=== PATIENT | male | born 1955 | race Caucasian/White ===

== ENCOUNTER → 2016-10-29 | Outpatient (CLI) | payer OTHER ==
--- NOTE | 2016-10-29 14:52 | RADRPT ---
PROCEDURE: XR Pelvis and Hips. CLINICAL INDICATION: Pelvic pain. Bilateral hip pain. TECHNIQUE: Five views. Frontal pelvis. Frontal and lateral right hip. Frontal and lateral left hip. COMPARISON: No prior studies are available for comparison. FINDINGS: There is no fracture or dislocation. The soft tissues are normal. Both hips are grossly abnormal with marked deformity of the femoral heads and acetabulae. There is associated secondary degenerative change. There is no lytic or blastic lesion. There is no radiopaque foreign body. IMPRESSION: 1. Marked deformity of both hips with associated secondary degenerative change. 2. No fracture. RPTAT: QQ .Sigifredo Porter MD, MD Date Time Electronically viewed and signed by .Sigifredo Porter MD, MD on 10/29/2016 14:51 .R/
== END | disposition home or self-care (01) ==
LOC: HKI 13:24
PROVIDERS: ATTEND Orthopaedic Surgery
DX: M16.0 Bilateral primary osteoarthritis of hip (principal); Q65.1 Congenital dislocation of hip, bilateral
CPT/HCPCS: 73523; Z7500; G0463

== ENCOUNTER → 2016-12-24 | Outpatient (CLI) | payer OTHER | END | disposition home or self-care (01) | LOC: HKI 10:52 | PROVIDERS: ATTEND Orthopaedic Surgery | DX: M16.0 Bilateral primary osteoarthritis of hip (principal); Q65.1 Congenital dislocation of hip, bilateral; M25.552 Pain in left hip; M25.551 Pain in right hip | CPT/HCPCS: 87081; Z7500; G0463 ==

== ENCOUNTER 2017-01-06 05:33 | Inpatient (IN) | payer OTHER ==
[2017-01-06] VITALS (30 sets, daily range): BP systolic 89–122; BP diastolic 45–69; PULSE 61–96; RESP 12–24; Ht 171.4 cm; Wt 88.1 kg
[~2017-01-06] VITALS: Ht 171.4 cm; Wt 88.1 kg
[~2017-01-06 05:33] MED LIST: BUPIVACAINE LIPOSOME/PF 266 MG/20 ML VIAL INFIL ONE; CEFAZOLIN 2GM/50 ML (PMX) 50 ML X1 BEFORE INCISION IVPB ONE; CELECOXIB 400 MG PO X1 DOSE PO ONE; PAIN COCKTAIL-CEFUROXIME IRR ONE; PREGABALIN 300 MG PO X1 PO ONE; TRANEXAMIC ACID in SOD CHLORIDE 0.9% 100 ML FOR INTRAOP IVPB ONE; TRANEXAMIC ACID in SOD CHLORIDE 0.9% 100 ML ON CALL TO OR IV ONE; oxyCODONE (CR) 10 MG TAB [oxyCONTIN] X1 DOSE PO ONE; traMADOL 50 MG TAB X 1 DOSE PO ONE
[2017-01-06] MEDS: LACTATED RINGER'S 1,000 ML IV SCH ×4 (06:26→23:50)
[2017-01-06] MEDS ORDERED: ALEVE (06:41)
[2017-01-06] MEDS ORDERED: MIDAZOLAM 1 MG/ML 2 ML INJ ONE (06:53)
[2017-01-06] MEDS ORDERED: PROPOFOL 100 ML ONE (06:53)
[2017-01-06] MEDS ORDERED: CEFAZOLIN 1 GM INJ ONE ×2 (06:53→10:58)
[2017-01-06] MEDS ORDERED: METOCLOPRAMIDE 10 MG INJ ONE (06:54)
[2017-01-06] MEDS ORDERED: DEXAMETHASONE 4 MG/ML 1 ML INJ ONE (06:54)
[2017-01-06] MEDS ORDERED: FENTAnyl 50 MCG/ML VIAL ONE (07:05)
--- NOTE | 2017-01-06 07:17 | HPN ---
Date/Time of Note Date/Time of Note DATE: 01/06/17 TIME: 07:16 Interval H&P Admission Note Pt. seen H&P reviewed: No system changes No change from H&P on 12/27/16 by MINA Fleming ERIK N. MD Jan 06, 2017 07:17
[2017-01-06] MEDS ORDERED: SODIUM CL BACTERIOSTATIC 30 ML INJ ONE (07:22)
[2017-01-06] MEDS ORDERED: POLYMYXIN B 500000 UNIT INJ ONE (07:23)
[2017-01-06] MEDS ORDERED: HEPARIN 1000 UNITS/ML 10 ML INJ ONE (07:23)
[2017-01-06] MEDS ORDERED: VANCOMYCIN 1 GM INJ ONE ×2 (07:23→10:05)
[2017-01-06] MEDS ORDERED: SUCCINYLCHOLINE CHLORIDE 100 MG/5 ML SYG IV ONE (07:40)
[2017-01-06] MEDS ORDERED: ROCURONIUM 50 MG INJ ONE ×2 (08:17)
[2017-01-06] MEDS ORDERED: BACITRACIN 50000 UNITS INJ IRR ONE (08:40)
[2017-01-06] MEDS ORDERED: TOBRAMYCIN 1.2 GM POWDER ONE (10:05)
[2017-01-06] MEDS ORDERED: EXPAREL NOTE (BUPIVICAINE LIPOSOMAL) XX SCH (10:30)
[2017-01-06] MEDS ORDERED: ONDANSETRON 4 MG INJ ONE (11:01)
[2017-01-06] MEDS ORDERED: EPHEDrine SULFATE 50 MG/5 ML SYG ONE (11:22)
[2017-01-06] MEDS ORDERED: HYDROmorphONE (0.2 MG/ML) 10ML SYG IV PRN ×3 (11:30)
[2017-01-06] MEDS ORDERED: ONDANSETRON 4 MG INJ IV PRN ×2 (11:30→12:00)
[2017-01-06] MEDS ORDERED: DIPHENHYDRAMINE 50 MG INJ IV PRN (11:30)
[2017-01-06] MEDS ORDERED: MEPERIDINE 25 MG INJ IV PRN (11:30)
[2017-01-06] MEDS ORDERED: METOCLOPRAMIDE 10 MG INJ IV PRN (11:30)
[2017-01-06] MEDS ORDERED: oxyCODONE 5 MG TAB PO PRN (12:00)
[2017-01-06] MEDS ORDERED: NA PHOSPHATE/BIPHOS 133 ML ENEMA PR PRN (12:00)
[2017-01-06] MEDS ORDERED: BISACODYL 10 MG SUPP PR PRN (12:00)
[2017-01-06] MEDS ORDERED: DIPHENHYDRAMINE 25 MG CAP PO PRN (12:00)
[2017-01-06] MEDS ORDERED: ASPIRIN (EC) 325 MG TAB PO ONE (12:00)
--- NOTE | 2017-01-06 12:21 | PN ---
Date/Time of Note Date/Time of Note DATE: 01/06/17 TIME: 12:18 Assessment/Plan Lines/Catheters IV Catheter Type (from Nrsg): Peripheral IV Assessment/Plan Assessment/Plan Stable in PACU, s/p left posterior RACHANA -continue ancef until drains removed -pain meds as needed -ASA/SCDs for DVT prophylaxis -OOB with PT - WB status is TDWB -posterior hip precautions -check AM labs -monitor drain -d/c mendes in AM XR of the left hip is pending at this time Subjective 24 Hr Interval Summary Stable in PACU. Moving all extremities. Denies pain. Exam/Review of Systems Vital Signs Vitals Vital Signs Date Time Temp Pulse Resp B/P Pulse Ox O2 Delivery O2 Flow Rate FiO2 01/06/17 12:11 98.6 01/06/17 06:14 61 18 116/58 99 Room Air Intake and Output 01/05/17 01/05/17 01/06/17 15:00 23:00 07:00 Intake Total 0 ml Balance 0 ml Exam Free Text/Dictation Hemovac: minimal Dressing dry Incision clean, dry, and intact without redness or drainage 5/5 Quadriceps, Tibialis Anterior, EHL, Gastroc, Soleus, Peroneals Normal sensation Palpable DT/PT, CR <2 sec No distal edema AMINA CRONIN PA-C Jan 06, 2017 12:21
--- NOTE | 2017-01-06 12:28 | OPR ---
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
[2017-01-06 12:35] LABS: HEMATOCRIT 33.1 % (42.0-52.0); HEMOGLOBIN 11.3 g/dl (14.0-18.0)
[2017-01-06 12:48] LABS: CALCIUM 8.1 mg/dl (8.4-10.2); CREATININE 0.82 mg/dl (0.61-1.24)
[2017-01-06] MEDS: ACETAMINOPHEN 1000MG/100ML IV 100 ML IVPB SCH ×3 (12:57→23:48)
[2017-01-06] MEDS: traMADol 50 MG TAB PO SCH ×3 (12:57→23:50)
[2017-01-06] MEDS: CEFAZOLIN 2 GM/50 ML (PMX) 50 ML IVPB SCH ×2 (12:58→21:09)
--- NOTE | 2017-01-06 13:34 | RADRPT ---
PROCEDURE: Pelvis x-ray CLINICAL INDICATION: Postop. TECHNIQUE: Single AP view of the pelvis performed. COMPARISON: AP pelvis 10/29/2016. FINDINGS: There is flattening and deformity of the right femoral head with narrowing of the right hip joint sp ekaterina. There is sclerotic changes and degenerative spurring off the margin of the right acetabulum. There has been a left hip arthroplasty with the components anatomically aligned. There is subcutane ous emphysema of the drainage catheter in the superior left hip. There are antibiotic pledgets vidal cent to the neck and proximal portion of the left hip arthroplasty. There is a Matos catheter in th e urinary bladder. There is skin conor over the lateral left hip. IMPRESSION: 1. Status post total left hip arthroplasty with anatomic alignment between the components. 2. Subcutaneous emphysema the drainage catheter in the right hip and antibiotic pledgets adjacent t o the femoral component of the left hip prosthesis. 3. Deformity of the proximal right femoral head with narrowing of the left hip joint consistent wit h secondary osteoarthritis. RPTAT:AAJJ Physician Mina Date Time Electronically viewed and signed by Physician Mina on 01/06/2017 13:33 HO/
--- NOTE | 2017-01-06 13:36 | OPR ---
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 OPERATION PERFORMED: Left total hip arthroplasty with subtrochanteric femoral shortening osteotomy. SURGEON: Arsen Weiss MD REGIONAL MANAGER: ROSENDO Castillo COMPONENTS USED: DePuy size 48 mm Gription Saint Johns cup, 48/32 neutral AltrX polyethylene liner, S-ROM femoral stem 18 x 13 with a 36+8 standard neck, 18 D large ZTT proximal sleeve, 32+9 cobalt chrome femoral head. ANESTHESIA: Spinal plus general endotracheal intubation plus periarticular injection. ANESTHESIOLOGIST: Dr. Arreaga ESTIMATED BLOOD LOSS: 800 mL. INTRAVENOUS FLUIDS: 2300 mL crystalloid plus 350 mL of autologous CellSaver blood. DRAINS: Hemovac x1. COMPLICATIONS: None. DISPOSITION: The patient tolerated the procedure well and was taken to the recovery room in stable condition. INDICATIONS: The patient is a 61-year-old gentleman who has had underlying developmental dysplasia of both hips with the development of severe osteoarthritis bilaterally. He has failed nonsurgical means of treatment to control his pain including activity modifications, pain medications, and ambulatory assist devices. Despite these measures, he has had worsening pain, and I felt he would benefit from a total hip arthroplasty in a staged fashion bilaterally with possible femoral subtrochanteric shortening osteotomies. He wanted to proceed with the left side first. The risks, benefits, and alternatives of the procedure were explained in detail to the patient. I explained the risks to include, but not be limited to, bleeding and possible need for blood transfusion, infection, pain, stiffness, neurovascular injury, possible numbness, weakness, and/or paralysis anywhere from the hip down to the toes, fracture, instability, dislocation, leg length inequality, wear and/or loosening of the prosthesis, need for revision at a later date, wound healing problems, blood clots, pulmonary embolism, and anesthetic complications such as heart attack, stroke, GI bleed, pneumonia and/or . Ample time was allowed for the patient to ask questions, all of which were addressed and answered. He understood the risks involved and wished to proceed. Informed consent was signed prior to the procedure. DESCRIPTION OF PROCEDURE: The left hip was initialed with a marking pen in the preoperative holding area to identify the correct operative site. The patient was then brought to the operating room and transferred [facility] the [facility] to the operating table where he was administered a spinal anesthetic and then anesthetized and intubated. A Matos catheter was placed. A time out was performed to confirm the left side was the correct operative site. He was given 2 grams of intravenous Ancef within 1 hour prior to the incision. He was then turned to lateral decubitus position with the left side up. An axillary roll was placed under the right chest wall. He was secured into the pegboard and all bony prominences were well padded. The left hip and lower extremity were prepped and draped in the usual sterile fashion. A standard posterolateral incision was made centered over the greater trochanter. This was carried down to subcutaneous tissue and fat with sharp dissection. The iliotibial band and gluteus hamida muscle fascia were incised along the length of the wound, and the gluteus hamida muscle fibers were bluntly split. The trochanteric bursa was incised. The piriformis and conjoined tendon were identified and taken down off the posterior aspect of the greater trochanter and tagged it with a #2 FiberWire. A complete release posteriorly was needed by releasing the quadratus femoris and gluteus hamida tendon to gain maximal mobility of the hip. The head was dislocated from the acetabulum. There was exuberant osteophyte around the head and particularly inferiorly. Osteotomes were used to remove the osteophytes to identify the lesser trochanter. Osteotomy was made with an oscillating saw a fingerbreadth above the level of the lesser trochanter. The femur was retracted anteriorly, but I was unable to adequately assess the acetabulum because of a markedly proximal migration of the femur. I felt he would need a shortening osteotomy. At this point, the femur was prepared prior to the osteotomy by reaming up to a 13.5 reamer, getting good chatter. I then reamed with a conical reamers going from an 18 B to an 18 D and then used the triangular aparicio to go to 18 B large. A trial sleeve sat flush with the neck cut. At this point, an osteotomy was made transversely 2 fingerbreadths below the level of lesser trochanter. The proximal fragment was then able to be mobilized anteriorly. Retractors were placed around the acetabulum. I then reamed to the medial wall with a 43 reamer and went up to an anatomic position, then went up by 2 mm increments until I got to a 47 reamer, getting a good bite on the anterior and posterior wall. A 48 mm Gription Saint Johns cup was opened and impacted into the acetabulum and sat flush circumferentially, getting a good bite. There was a small percentage that was uncovered superiorly, but the majority of the cup remained covered. This had an excellent bite. This had about 45 degrees of abduction and 20 degrees of anteversion. A trial 48/32 neutral Ultrex liner was placed into position. The Aufranc-Morelos guide showed the cup had 45 degrees of abduction and 20 degrees of anteversion. Attention was turned towards the femur. I then placed a trial 18 x 13 with a 36+8 standard neck into the proximal fragment with a 36+6 head and reduced this into the acetabulum. I then pulled on the distal fragment the femur and there was about 3.5 cm of overlap. I felt this would be the amount that needed to be shortened. An osteotomy was made and the proximal fragments were removed, 3.5 cm of bone. At this point, I reamed the distal femur with a 13 and then a 13.5 reamer getting good chatter. At this point, the trial stem was reduced into the distal fragment. C-arm imaging showed the alignment to be good, and the hip was taken through a range of motion and was quite stable. There was 110 degrees of flexion. At 90 degrees of flexion and neutral abduction, the hip was stable posteriorly to 80 degrees of internal rotation. The position of sleep was stable to 80 degrees of internal rotation as well. The hip came to a full extension with no posterior impingement or anterior instability. The Ranawat sign showed a combined forward flexion of 45 degrees. At this point, the trial was dislocated, the trial liner was removed from the acetabulum. An apex hole eliminator was placed and the real polyethylene insert was opened and impacted into the acetabulum and sat flush circumferentially. Attention was turned towards the femur. The trial ZTT sleeve was removed, and the real sleeve was opened, impacted into the femur, and sat flush with the neck cut. At this point, the femur was lined up for the proximal and distal segments as the linea asperas lined up. This was held in place while the tibia was pointing towards the ceiling. The 18 x 13 with a 36+8 neck was opened and impacted into the femur through the sleeve and across the osteotomy site and into the distal fragment, keeping the neck anteverted 20 to 25 degrees relative to the tibia pointing towards the ceiling. This sat flush with the ZTT sleeve and the osteotomy was compressed completely. There was a small crack in the distal fragment, but propagated only about 2 cm and I looked on C-arm, and it stopped well above where the end of the stem was and was rotationally stable. At this point, the trial heads were assembled, and I felt the 32+9 gave the best leg length and offset. The trunnion was irrigated and dried and the real 32+9 cobalt chrome head was impacted on the trunnion and reduced in the acetabulum. The hip was taken through a range of motion and had the same range of motion and stability as with the trials. At this point, the femoral shortening osteotomy fragment was cut in half and placed as a napkin ring around the osteotomy site and secured with Sonali cables tensioned to 100 kilograms of pressure and then tightened and then the excess cable cut. Final C -arm imaging showed the stem to be well aligned the osteotomy site to be compressed completely. AP and lateral images of the femur. Prior to reduction showed no distal fracture. The head was reduced in the acetabulum. The hip had the same range of motion and stability with the trials. The hip was irrigated with antibiotics and pulsatile lavage. Stimulant beads with vancomycin and tobramycin were mixed and placed in the deep portion of the wound. A Hemovac drain was placed in the deep portion of the wound and brought out the anterolateral thigh. The posterior capsule short external rotators were repaired back to the greater trochanter through drill holes and #2 FiberWire. Quadratus femoris and gluteus hamida tendon was repaired with a running #1 Vicryl. The sciatic nerve was inspected and noted to be intact with no undue tension. Soft tissues were infiltrated with a mixture of 0.5% ropivacaine, 4 mg Duramorph, 30 mg Toradol, 100 mcg of clonidine, 50 mL of normal saline, 750 mg of cefuroxime and 266 mg of liposomal bupivacaine. At this point, the iliotibial band was closed with interrupted #1 Ethibond in a ktdons-ni-rtaxj fashion. The gluteus hamida muscle fascia was repaired with running #1 Vicryl. The deep fat layer was irrigated and closed with a running 2 -0 Stratafix. The subcutaneous layer was closed with 3-0 Vicryl and conor on the skin. Skin edges were sealed with Dermabond. The drain was secured with 3- 0 nylon. Sponge and needle counts correct at the end of case. The wound was covered with silver Mepilex. The patient was taken out of the pegboard and transferred from the hospital where he was placed in a supine position and taken to the recovery room in stable condition. Dictated By: ARSEN TIDWELL/ARISTEO Conf#: [id number] DID#: [id number] MTDD
--- NOTE | 2017-01-06 13:46 | RADRPT ---
PROCEDURE: XR Left Hip. CLINICAL INDICATION: Post op in PACU TECHNIQUE: AP and frog lateral views of the left hip were performed. COMPARISON: Digital radiographs and surgery 01/06/2017. FINDINGS: The femoral and acetabular components of the left hip arthroplasty are anatomically aligned with the drainage catheter noted along the superior lateral margin of the left hip. Antibiotic pledgets and subcutaneous emphysema surrounding the femoral component of the left hip prosthesis. There is a Fo walt catheter in the urinary bladder. IMPRESSION: 1. Status post total left hip arthroplasty with postsurgical change. RPTAT:AAJJ Physician Mina Date Time Electronically viewed and signed by Physician Mina on 01/06/2017 13:45 HO/
--- NOTE | 2017-01-06 13:49 | RADRPT ---
PROCEDURE: Intraoperative imaging of the left hip with fluoroscopy. CLINICAL INDICATION: Left hip pain. Intraoperative. TECHNIQUE: 6 images of the left hip were obtained in the operating room with an image intensifier. No radiologist was in attendance. 36 seconds of fluoroscopy time was used. COMPARISON: No prior study is available for comparison. FINDINGS: Images demonstrate placement of a total left hip arthroplasty. IMPRESSION: 1. Satisfactory intraoperative imaging of the left hip. RPTAT: QQ .Sigifredo Porter MD, MD Date Time Electronically viewed and signed by .Sigifredo Porter MD, MD on 01/06/2017 13:49 .R/
[2017-01-06] MEDS ORDERED: BACITRACIN 50000 UNITS INJ ONE (14:45)
[2017-01-06] MEDS ORDERED: TRANEXAMIC ACID 880 MG in SOD CHLORIDE 0.9% 100 ML IVPB ONE ×2 (15:00→18:00)
[2017-01-06] MEDS: oxyCODONE 5 MG TAB PO PRN (15:29)
[2017-01-06] MEDS: PANTOPRAZOLE (EC) 40 MG TAB PO SCH (17:48)
--- NOTE | 2017-01-06 18:23 | CONS ---
DATE OF ADMISSION: 01/06/2017 DATE OF CONSULTATION: 01/06/2017 REASON FOR CONSULTATION: Medical management. REQUESTING CONSULT: Tim Weiss MD HISTORY OF PRESENT ILLNESS: This is a 61-year-old gentleman with past medical history of osteoarthr itis of the left hip, who has been seen and evaluated by his primary care physician and was diagnose d with left hip osteoarthritis secondary to developmental dysplasia of the left hip and has develope d severe arthritis bilaterally. The patient has failed nonsurgical means of treatment to control hi s pain including activity modification, pain medication, ambulatory assist devices. Despite of thes e measures, he has had worsening of the pain and he was seen and evaluated by orthopedic surgeon and it was felt that he would benefit from total hip arthroplasty in a staged fashion bilaterally with possible femoral subtrochanteric shortening osteotomies. He wanted to proceed with the left side fi rst. After discussing the risk and benefits of surgery and signing the consent, the patient was ligia en to OR today on 01/06/2017 for left total hip arthroplasty with subtrochanteric femoral shortening osteotomy. The patient tolerated the procedure well and was taken to the recovery room in stable c ondition. Estimated blood loss 800 mL. During the course of the surgery, the patient received vanc omycin and cefazolin. At this time, the patient has been admitted to medical/surgical. He denies a ny chest pain, shortness of breath, nausea, vomiting, diarrhea. No headache, dizziness, lightheaded ness. No change in visual acuity, diplopia, photophobia. No abdominal pain. No palpitations. Mod erate pain in his left hip. Otherwise, the 12-review of systems is negative. PAST MEDICAL AND SURGICAL HISTORY: None. MEDICATIONS: Aleve. SOCIAL HISTORY: Negative x3 for smoking, alcohol, illicit drugs. FAMILY HISTORY: Noncontributory. REVIEW OF SYSTEMS: As above per HPI, otherwise 12 review of systems was found to be negative. PHYSICAL EXAMINATION: VITAL SIGNS: Temperature 97.0, pulse 83, respirations 18, blood pressure 93/55, oxygen satura tion 98%. GENERAL APPEARANCE: The patient is lying in bed comfortably without any acute distress. He is awak e, alert, oriented. He is able to answer my questions properly. EYES AND ENT: Conjunctivae and lids are normal. Pupils are normal. Extraocular normal. Hearing g rossly normal. Lips, teeth and gums normal. Oral mucosa is moist. NECK: Supple. Trachea is midline. No lymphadenopathy. RESPIRATORY: Effort is normal. Clear to auscultation bilaterally. CARDIOVASCULAR: Normal S1, S2. Regular rhythm and rate. No murmur, no bruits, no edema. Peripher al pulses, radial pulses palpable. Capillary refill is normal. CHEST: Normal expansion of thorax during inspiration. GASTROINTESTINAL: Abdomen is soft, nontender, not distended. Bowel sounds present. No guarding, n o rebound. GENITOURINARY: Deferred. MUSCULOSKELETAL: Upper and lower extremities within normal limits. The patient's surgical site is dry and clean. There is a drain placed in the left hip area. NEUROLOGIC: Intact. LABORATORY DATA: Hemoglobin 11.3, hematocrit 32.1. Sodium 135, potassium 4.0, chloride 106, bicarb shiela 22, BUN 20, creatinine 0.82, calcium 8.1. ASSESSMENT AND PLAN: 1. 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 The patient is st atus post left total hip arthroplasty with subtrochanteric femoral shortening osteotomy. Continue p ostsurgical care and pain medication. PT, OT evaluate and treat. Continue pain management. 2. Deep venous thrombosis prophylaxis, on aspirin. 3. Gastrointestinal prophylaxis, on Protonix. We will continue to monitor the patient closely. Fu rther recommendations, management, and treatment as per clinical course. Dictated By: KIESHA NIXON/NTS Conf#: [id number] DID#: [id number]
[2017-01-06] MEDS: DOCUSATE SODIUM 100 MG CAP PO SCH (21:13)
[2017-01-06] MEDS: PREGABALIN 50 MG CAP PO SCH (21:13)
[2017-01-07] VITALS: BP 102/60; PULSE 64; RESP 17
[2017-01-07] MEDS: LACTATED RINGER'S 1,000 ML IV SCH ×5 (01:00→21:00)
[2017-01-07] MEDS: CEFAZOLIN 2 GM/50 ML (PMX) 50 ML IVPB SCH ×3 (04:21→20:17)
[2017-01-07] MEDS: HYDROmorphONE 1 MG/ML SYG IV PRN (05:01)
[2017-01-07 05:45] LABS: HEMATOCRIT 27.3 % (42.0-52.0); HEMOGLOBIN 8.9 g/dl (14.0-18.0)
[2017-01-07] MEDS: PANTOPRAZOLE (EC) 40 MG TAB PO SCH ×2 (06:35→17:39)
[2017-01-07] MEDS: ACETAMINOPHEN 1000MG/100ML IV 100 ML IVPB SCH (06:36)
[2017-01-07] MEDS: traMADol 50 MG TAB PO SCH ×3 (06:36→17:38)
[2017-01-07 06:48] LABS: CALCIUM 8.5 mg/dl (8.4-10.2); CREATININE 0.79 mg/dl (0.61-1.24); POTASSIUM 4.9 mmol/L (3.5-5.1)
--- NOTE | 2017-01-07 07:45 | PDOCDIS ---
Discharge Instructions DIAGNOSIS Discharge Diagnosis: s/p left posterior RACHANA, subtroch femoral osteotomy CONDITION Patient Condition: Good HOME CARE INSTRUCTIONS: Diet Instructions: Regular ACTIVITY: Activity Restrictions: Slowly Increase Activity Rest between Activity Avoid heavy lifting Do not operate Machinery Do not operate Power Tool Avoid Heavy Housework Keep Limb Elevated Bathing Restrictions: Shower FOLLOW UP/APPOINTMENTS Appointments follow up in the office on 01/17/17 OTHER ORDERS: Other Orders: S/P Posterior RACHANA Physical Therapy: Three times per week at home x 2 weeks Daily in Rehab/SNF WB STATUS: Touch down weight bearing Strengthening exercises for both upper and un-operated lower extremities. 1. Gait training with front wheeled walker 2. Wide base gait, no pivot turns. 3. Abductor strengthening. 4. Quadriceps and hamstring strengthening. 5. May switch to cane in contra lateral hand 6 weeks after surgery. 6. Physical Therapy can open case if nursing is not available. 7. Ice Packs while at rest to surgical wound for 20 minutes, 3 times/day. 8. Patient requires mobile SCDs to reduce risk of developing DVT following RACHANA. Patient will use the mobile SCDs for 30 days postoperatively. Hip Precautions: no flexion beyond 90 degrees, no adduction, no internal rotation. Bathing assistance by home health aide twice weekly if Medicare patient. Occupational Therapy: Evaluation for assistive devices and ADL training. Wound Care: Keep incision dry & covered with Tegaderm until first visit with Dr. Weiss Anticoagulation Orders: Enteric Coated Aspirin 325 mg po bid x 6 weeks from date of surgery Follow-up:Call for an appointment with Dr. Weiss in 1 week after discharged from hospital at DME Orders: STAN, 3-in-1 Commode, Mobile SCDs AMINA CRONIN PA-C Jan 07, 2017 07:45
[2017-01-07] MEDS ORDERED: PANT40TA4 PO (07:47)
[2017-01-07 08:42] VITALS: BP 117/57; RESP 18
[2017-01-07] MEDS: DOCUSATE SODIUM 100 MG CAP PO SCH ×2 (08:51→20:16)
[2017-01-07] MEDS: oxyCODONE 5 MG TAB PO PRN ×3 (08:51→21:03)
[2017-01-07] MEDS: PREGABALIN 50 MG CAP PO SCH ×2 (08:51→20:16)
[2017-01-07] MEDS: ASPIRIN (EC) 325 MG TAB PO SCH ×2 (08:51→20:16)
--- NOTE | 2017-01-07 09:01 | PN ---
Date/Time of Note Date/Time of Note DATE: 01/07/17 TIME: 08:59 Assessment/Plan Lines/Catheters IV Catheter Type (from Nrsg): Peripheral IV Matos in Place (from Nrsg): Yes Assessment/Plan Assessment/Plan Stable POD #1, s/p left posterior RACHANA, subtroch femoral shortening osteotomy -continue ancef until drains removed -monitor drains -pain meds as needed -ASA/SCDs for DVT prophylaxis -OOB with PT touch down weight bearing -posterior hip precautions -check AM labs -d/c planning. Will likely go home on Tuesday Subjective 24 Hr Interval Summary No acute overnight events. Denies any significant pain. H&H low but will continue to monitor for now. VSS, afebrile. Will plan to go home upon discharge. Exam/Review of Systems Vital Signs Vitals Vital Signs Date Time Temp Pulse Resp B/P Pulse Ox O2 Delivery O2 Flow Rate FiO2 01/07/17 08:42 98.2 66 18 117/57 100 01/07/17 00:00 Nasal Cannula 01/06/17 20:15 2.0 Intake and Output 01/06/17 01/06/17 01/07/17 14:59 22:59 06:59 Intake Total 2800 ml 1092.6 ml 2250 ml Output Total 1610 ml 550 ml 2000 ml Balance 1190 ml 542.6 ml 250 ml Exam Free Text/Dictation Hemovac: 260cc Dressing dry Incision clean, dry, and intact without redness or drainage 5/5 Quadriceps, Tibialis Anterior, EHL, Gastroc, Soleus, Peroneals Normal sensation Palpable DT/PT, CR <2 sec No distal edema Results Result Diagram: 01/07/17 0420 01/07/17 0440 AMINA CRONIN PA-C Jan 07, 2017 09:01
[2017-01-07 10:08] LABS: ADD UMIC YES; URINE BILIRUBIN (Dip) NEGATIVE (NEGATIVE); URINE BLOOD (Dip) 1+ (NEGATIVE); URINE COLOR LT. YELLOW (YELLOW); URINE GLUCOSE (Dip) NEGATIVE (NEGATIVE); URINE KETONES (Dip) NEGATIVE (NEGATIVE); URINE LEUKOCYTE ESTERASE (Dip) NEGATIVE (NEGATIVE); URINE NITRITE (Dip) NEGATIVE (NEGATIVE); URINE TOTAL PROTEIN (Dip) NEGATIVE (NEGATIVE); URINE UROBILINOGEN (Dip) 0.2 E.U./dL (0.1-1.0)
[2017-01-07 10:25] LABS: BACTERIA,URINE FEW
--- NOTE | 2017-01-07 17:01 | CONS ---
Date/Time of Note Date/Time of Note DATE: 01/07/17 TIME: 16:58 Assessment/Plan Assessment/Plan Chief Complaint/Hosp Course ASSESSMENT AND PLAN: 1. 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 The patient is status post left total hip arthroplasty with subtrochanteric femoral shortening osteotomy. Continue postsurgical care and pain medication. PT, OT evaluate and treat. Continue pain management. 2. Anemia, likely post surgical, follow-up iron panel, recommend to transfuse if hemoglobin decreases below 7.5 3. Deep venous thrombosis prophylaxis, on aspirin. 4. Gastrointestinal prophylaxis, on Protonix. We will continue to monitor the patient closely. Further recommendations, management, and treatment as per clinical course. Problems: Consultation Date/Type/Reason Admit Date/Time Jan 06, 2017 at 05:33 Initial Consult Date 01/06/17 Referring Provider: ARSEN AGUERO MD 24 HR Interval Summary Free Text/Dictation Denies any chest pain or shortness of breath Continues to complain of having left hip pain Pain has been more tolerable with ice and pain medication Exam/Review of Systems Vital Signs Vitals Vital Signs Date Time Temp Pulse Resp B/P Pulse Ox O2 Delivery O2 Flow Rate FiO2 01/07/17 08:42 98.2 66 18 117/57 100 01/07/17 00:00 Nasal Cannula 01/06/17 20:15 2.0 Intake and Output 01/06/17 01/06/17 01/07/17 15:00 23:00 07:00 Intake Total 2800 ml 1092.6 ml 2250 ml Output Total 1610 ml 550 ml 2000 ml Balance 1190 ml 542.6 ml 250 ml Exam General: The patient is well-developed, Not in acute distress. HEENT: Atraumatic, normocephalic. The pupils are equal and round . Neck: Supple with full range of motion. Chest: Normal expansion of the thorax during inspiration Lungs: Clear to auscultation bilaterally Heart: Normal S1-S2, Regular rhythm and rate. Abdomen: Soft , nontender, nondistended , bowel sounds are present. Extremities: Surgical site is dry and clean, drain is in place, no edema no cyanosis Neurologic: Normal mental status,The patient is awake, alert and oriented . Results Result Diagram: 01/07/17 0420 01/07/17 0440 Results 24 hrs Laboratory Tests Test 01/07/17 04:20 01/07/17 04:40 01/07/17 06:40 Hemoglobin 8.9 #L Hematocrit 27.3 L Sodium Level 134 L Potassium Level 4.9 Chloride Level 103 Carbon Dioxide Level 27 Anion Gap 9 Blood Urea Nitrogen 15 Creatinine 0.79 Glucose Level 134 # Calcium Level 8.5 Urine Color LT. YELLOW Urine Clarity CLEAR Urine pH 6.0 Urine Specific [place] 1.020 Urine Ketones NEGATIVE Urine Nitrite NEGATIVE Urine Bilirubin NEGATIVE Urine Urobilinogen 0.2 E.U./dL Urine Leukocyte Esterase NEGATIVE Urine Microscopic RBC 10-25 Urine Microscopic WBC 2-5 Urine Epithelial Cells FEW Urine Bacteria FEW Urine Hemoglobin 1+ H Urine Glucose NEGATIVE Urine Total Protein NEGATIVE Medications Medications Current Medications Lactated Ringer's (Lr) 1,000 ml @ 100 mls/hr Q10H IV Last administered on 11:03; Admin Dose 100 MLS/HR; Start 01/06/17 at 05:00 Miscellaneous Information 1 ea NOTE XX ; Start 01/06/17 at 10:30; Stop 01/10/17 at 10:29 Tramadol HCl (Ultram) 50 mg Q6 PO Last administered on 01/07/17 11:54; Admin Dose 50 MG; Start 01/06/17 at 12:00; Stop 01/09/17 at 11:59 Oxycodone HCl (Roxicodone) 5 mg Q4H PRN PO PAIN LEVEL 1-3; Start 01/06/17 at 12: 00 Oxycodone HCl (Roxicodone) 10 mg Q4H PRN PO PAIN LEVEL 4-7 Last administered on 01/07/17 14:49; Admin Dose 10 MG; Start 01/06/17 at 12:00 Hydromorphone HCl 1 mg 1 mg Q3H PRN IV PAIN LEVEL 8-10 Last administered on 01/07 05:01; Admin Dose 1 MG; Start 01/06/17 at 12:00 Cefazolin Sodium/ Dextrose (Ancef 2 Gm/50 ml (Pmx)) 50 ml @ 100 mls/hr Q8H IVPB Last administered on 01/07/17 11:55; Admin Dose 100 MLS/HR; Start 01/06/17 at 12:00; Stop 01/08/17 at 04:29 Ondansetron HCl (Zofran Inj) 4 mg Q6H PRN IV NAUSEA AND/OR VOMITING; Start 01/06 at 12:00 Bisacodyl (Dulcolax Supp) [address] CONSTIPATION; Start 01/06/17 at 12: 00 Magnesium Hydroxide (Milk Of Mag) 30 ml BID PRN PO CONSTIPATION; Start 01/06/17 at 12:00 Sodium Biphosphate/ Sodium Phosphate (Fleet Enema) [address] CONSTIPATION; Start 01/06/17 at 12:00 Docusate Sodium (Colace) 100 mg BID PO Last administered on 01/07/17 08:51; Admin Dose 100 MG; Start 01/06/17 at 21:00 Diphenhydramine HCl (Benadryl) 25 mg Q6H PRN PO PRURITUS; Start 01/06/17 at 12: 00 Aspirin (Ecotrin) 325 mg BID PO Last administered on 01/07/17 08:51; Admin Dose 325 MG; Start 01/07/17 at 09:00 Pantoprazole (Protonix Tab) 40 mg BID@06,18 PO Last administered on 01/07/17 06 :35; Admin Dose 40 MG; Start 01/06/17 at 18:00 Pregabalin (Lyrica) 50 mg BID PO Last administered on 01/07/17 08:51; Admin Dose 50 MG; Start 01/06/17 at 21:00 KIESHA ISRAEL MD Jan 07, 2017 17:01
[2017-01-07 19:00] VITALS: BP 113/55; RESP 19
[2017-01-08] MEDS: oxyCODONE 5 MG TAB PO PRN (04:16)
[2017-01-08] MEDS: CEFAZOLIN 2 GM/50 ML (PMX) 50 ML IVPB SCH (04:36)
[2017-01-08] MEDS: HYDROmorphONE 1 MG/ML SYG IV PRN ×3 (04:53→22:16)
[2017-01-08 05:27] LABS: HEMATOCRIT 27.3 % (42.0-52.0)
[2017-01-08 05:44] LABS: CALCIUM 8.6 mg/dl (8.4-10.2); CREATININE 0.76 mg/dl (0.61-1.24); POTASSIUM 4.6 mmol/L (3.5-5.1)
[2017-01-08] MEDS: LACTATED RINGER'S 1,000 ML IV SCH ×2 (06:04→17:00)
[2017-01-08] MEDS: traMADol 50 MG TAB PO SCH ×5 (06:08→18:43)
[2017-01-08] MEDS: PANTOPRAZOLE (EC) 40 MG TAB PO SCH ×3 (06:08→18:43)
[2017-01-08 07:45] VITALS: BP 107/66; RESP 16
--- NOTE | 2017-01-08 08:24 | PN ---
Date/Time of Note Date/Time of Note DATE: 01/08/17 TIME: 08:18 Assessment/Plan VTE Prophylaxis VTE Prophylaxis Intervention: ambulation (Touchdown weightbearing as tolerated. With use of front wheeled walker.), SCD's Lines/Catheters IV Catheter Type (from Nrsg): Peripheral IV Matos in Place (from Nrsg): No Assessment/Plan Assessment/Plan -Hemovac Removed Today. 360 cc output. -Pain Meds as needed. Oxycodone 10 mg was stopped and patient was placed on [place] 7.5/[address] Weiss request. Nurse was notified. -Dress change performed today -Continue touchdown weightbearing as tolerated with use of assisted ambulatory device (front wheeled walker). -ASA/SCDs for DVT Prophylaxis -Continue monitoring with Internal Medicine -Patient Stable. -Unlikely patient will be discharged home tomorrow as he feels that he is not ready and continues experiencing pain. Subjective 24 Hr Interval Summary 61-year-old male postop day 1 left total hip arthroplasty via posterior route. Overnight, patient states that his pain was overall controlled up until 4 AM when he experienced 9/10 pain. Patient was provided with pain medication in regards to oxycodone 10 mg for pain exacerbation. Patient states that oxycodone did help relieve pain but continued to experience pain about 2 hours after. Denies any calf pain, chest pain/tightness or shortness of breath. Denies any complications to the wound. Denies any draining to the wound site. Hemovac remains intact. Pain Control: moderate Exam/Review of Systems Vital Signs Vitals Vital Signs Date Time Temp Pulse Resp B/P Pulse Ox O2 Delivery O2 Flow Rate FiO2 01/08/17 07:45 98.6 69 16 107/66 98 01/07/17 00:00 Nasal Cannula 01/06/17 20:15 2.0 Intake and Output 01/07/17 01/07/17 01/08/17 15:00 23:00 07:00 Intake Total 1150 ml 2810 ml 1250 ml Output Total 1860 ml 1160 ml Balance 1150 ml 950 ml 90 ml Exam Free Text/Dictation -Hemovac: Intact. 360 cc output. -Pain Cocktail Drains: Intact -Incision: Clean, Dry and Intact without any redness or drainage -Thigh soft -4+/5 Quadriceps, Tibialis Anterior, EHL Gastrocnemius/Soleus and Peroneals -Normal Sensation -Palpable DP/PT, Capillary Refill <2 secs -No Distal Edema -Negative Rocio Sign/No calf pain -Toes Freely Movable Constitutional: alert, oriented, well developed Results Result Diagram: 01/08/17 0437 01/08/17 0437 ESTEPHANIE WEBSTER PA-C Jan 08, 2017 08:24
[2017-01-08] MEDS: ASPIRIN (EC) 325 MG TAB PO SCH ×2 (08:46→20:19)
[2017-01-08] MEDS: HYDROCODONE/APAP (7.5/325) TAB PO PRN ×3 (08:47→18:56)
[2017-01-08] MEDS: DOCUSATE SODIUM 100 MG CAP PO SCH ×2 (08:47→20:20)
[2017-01-08] MEDS: PREGABALIN 50 MG CAP PO SCH ×2 (08:49→20:19)
--- NOTE | 2017-01-08 13:24 | PN ---
Date/Time of Note Date/Time of Note DATE: 01/08/17 TIME: 13:22 Assessment/Plan VTE Prophylaxis VTE Prophylaxis Intervention: SCD's, other Lines/Catheters [facility] Saline Lock Urinary Cath still in place: No Assessment/Plan Chief Complaint/Hosp Course ASSESSMENT AND PLAN: 1. 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 The patient is status post left total hip arthroplasty with subtrochanteric femoral shortening osteotomy. Continue postsurgical care and pain medication. PT, OT evaluate and treat. Continue pain management. 2. Anemia, likely post surgical, follow-up iron panel, recommend to transfuse if hemoglobin decreases below 7.5 3. Deep venous thrombosis prophylaxis, on aspirin. 4. Gastrointestinal prophylaxis, on Protonix. We will continue to monitor the patient closely. Further recommendations, management, and treatment as per clinical course. Problems: Subjective 24 Hr Interval Summary Free Text/Dictation Patient continues to complain of having left hip pain Denies of any chest pain or shortness of breath No nausea vomiting diarrhea Exam/Review of Systems Vital Signs Vitals Vital Signs Date Time Temp Pulse Resp B/P Pulse Ox O2 Delivery O2 Flow Rate FiO2 01/08/17 07:45 98.6 69 16 107/66 98 01/07/17 00:00 Nasal Cannula 01/06/17 20:15 2.0 Intake and Output 01/07/17 01/07/17 01/08/17 14:59 22:59 06:59 Intake Total 750 ml 3210 ml 1250 ml Output Total 1860 ml 1160 ml Balance 750 ml 1350 ml 90 ml Exam General: The patient is well-developed, Not in acute distress. HEENT: Atraumatic, normocephalic. The pupils are equal and round . Neck: Supple with full range of motion. Chest: Normal expansion of the thorax during inspiration Lungs: Clear to auscultation bilaterally Heart: Normal S1-S2, Regular rhythm and rate. Abdomen: Soft , nontender, nondistended , bowel sounds are present. Extremities: Surgical site is dry and clean, no edema no cyanosis Neurologic: Normal mental status,The patient is awake, alert and oriented . Results Result Diagram: 01/08/17 0437 01/08/17 0437 Results 24 hrs Laboratory Tests Test 01/08/17 04:37 Hemoglobin 9.0 L Hematocrit 27.3 L Sodium Level 133 L Potassium Level 4.6 Chloride Level 99 Carbon Dioxide Level 30 Anion Gap 9 Blood Urea Nitrogen 13 Creatinine 0.76 Glucose Level 113 Calcium Level 8.6 Medications Medications Current Medications Lactated Ringer's (Lr) 1,000 ml @ 100 mls/hr Q10H IV Last administered on 11:03; Admin Dose 100 MLS/HR; Start 01/06/17 at 05:00 Miscellaneous Information 1 ea NOTE XX ; Start 01/06/17 at 10:30; Stop 01/10/17 at 10:29 Tramadol HCl (Ultram) 50 mg Q6 PO Last administered on 01/08/17 11:42; Admin Dose 50 MG; Start 01/06/17 at 12:00; Stop 01/09/17 at 11:59 Hydromorphone HCl (Dilaudid) 1 mg Q3H PRN IV PAIN LEVEL 8-10 Last administered on 01/08/17 04:53; Admin Dose 1 MG; Start 01/06/17 at 12:00 Ondansetron HCl (Zofran Inj) 4 mg Q6H PRN IV NAUSEA AND/OR VOMITING; Start 01/06 at 12:00 Bisacodyl (Dulcolax Supp) 10 mg Q12H PRN [place] CONSTIPATION; Start 01/06/17 at 12: 00 Magnesium Hydroxide (Milk Of Mag) 30 ml BID PRN PO CONSTIPATION; Start 01/06/17 at 12:00 Sodium Biphosphate/ Sodium Phosphate (Fleet Enema) 133 ml DAILY PRN [place] CONSTIPATION; Start 01/06/17 at 12:00 Docusate Sodium (Colace) 100 mg BID PO Last administered on 01/08/17 08:47; Admin Dose 100 MG; Start 01/06/17 at 21:00 Diphenhydramine HCl (Benadryl) 25 mg Q6H PRN PO PRURITUS; Start 01/06/17 at 12: 00 Aspirin (Ecotrin) 325 mg BID PO Last administered on 01/08/17 08:46; Admin Dose 325 MG; Start 01/07/17 at 09:00 Pantoprazole (Protonix Tab) 40 mg BID@06,18 PO Last administered on 01/08/17 06 :08; Admin Dose 40 MG; Start 01/06/17 at 18:00 Pregabalin (Lyrica) 50 mg BID PO Last administered on 01/08/17 08:49; Admin Dose 50 MG; Start 01/06/17 at 21:00 Acetaminophen/ Hydrocodone Bitart ([place] (7.5-325)) 1 tab Q4H PRN PO PAIN LEVEL 1-5 Last administered on 01/08/17 08:47; Admin Dose 1 TAB; Start 01/08/17 at 08:30 Acetaminophen/ Hydrocodone Bitart ([place] (7.5-325)) 2 tab Q4H PRN PO MODERATE PAIN LEVEL 4-6; Start 01/08/17 at 09:00 KIESHA ISRAEL MD Jan 08, 2017 13:23
[2017-01-08] MEDS: MAGNESIUM HYDROXIDE 30ML CUP PO PRN (18:55)
[2017-01-08 21:09] VITALS: BP 125/71; RESP 20
[2017-01-09] MEDS: traMADol 50 MG TAB PO SCH ×3 (00:20→11:56)
[2017-01-09] MEDS: LACTATED RINGER'S 1,000 ML IV SCH ×3 (02:58→23:00)
[2017-01-09 05:28] LABS: HEMATOCRIT 25.7 % (42.0-52.0); HEMOGLOBIN 8.5 g/dl (14.0-18.0)
[2017-01-09 05:44] LABS: POTASSIUM 4.5 mmol/L (3.5-5.1)
[2017-01-09 05:46] LABS: CREATININE 0.73 mg/dl (0.61-1.24)
[2017-01-09 05:47] LABS: CALCIUM 8.8 mg/dl (8.4-10.2)
[2017-01-09] MEDS ORDERED: PANTOPRAZOLE (EC) 40 MG TAB PO SCH (06:00)
[2017-01-09 06:19] LABS: TOTAL IRON BINDING CAPACITY 260 ug/dl (241-421)
[2017-01-09 06:21] LABS: IRON < 10 ug/dl (35-150)
--- NOTE | 2017-01-09 07:57 | PN ---
Date/Time of Note Date/Time of Note DATE: 01/09/17 TIME: 07:45 Assessment/Plan VTE Prophylaxis VTE Prophylaxis Intervention: SCD's, other (Aspirin 325 mg twice daily) Lines/Catheters IV Catheter Type (from Nrsg): Saline Lock Matos in Place (from Nrsg): No Assessment/Plan Assessment/Plan -Pain Meds as needed -Dress change performed today -OOB with PT. touchdown weightbearing only. Patient has mentioned that he has been doing some range of motion while in the bed. It was discussed with patient and his not to perform any range of motion while in the bed as this can increase complications such as dislocation. He states understanding and compliance. Also advised physical therapy, no range of motion while in bed. -ASA/SCDs for DVT Prophylaxis -Continue monitoring with Internal Medicine -Patient Stable Subjective 24 Hr Interval Summary 61-year-old male postop day 2 status post left total hip arthroplasty via posterior route. Patient states that pain was better controlled compared to yesterday. Pain medication was switched to [place] 7.5/325 mg from oxycodone 10 mg. Continues with physical therapy in the bed. Patient confirms that he has only been doing touchdown weightbearing in his room. Continues with complaints of stiffness along the quadriceps muscle with discomfort. Denies any calf pain. No chest pain/tightness or shortness of breath. Patient does state that his symptoms have improved. Pain Control: mild Exam/Review of Systems Vital Signs Vitals Vital Signs Date Time Temp Pulse Resp B/P Pulse Ox O2 Delivery O2 Flow Rate FiO2 01/08/17 21:09 98.5 74 20 125/71 95 01/07/17 00:00 Nasal Cannula 01/06/17 20:15 2.0 Intake and Output 01/08/17 01/08/17 01/09/17 15:00 23:00 07:00 Intake Total 1100 ml 1500 ml Output Total 1300 ml 1400 ml Balance -200 ml 100 ml Exam Free Text/Dictation -Hemovac: Removed -Incision: Clean, Dry and Intact without any redness or drainage -Thigh soft -5/5 Quadriceps, Tibialis Anterior, EHL Gastrocnemius/Soleus and Peroneals -Normal Sensation -Palpable DP/PT, Capillary Refill <2 secs -No Distal Edema -Negative Rocio Sign/No calf pain -Toes Freely Movable Constitutional: alert, oriented, well developed Results Result Diagram: 01/09/17 0505 01/09/17 0505 ESTEPHANIE WEBSTER PA-C Jan 09, 2017 07:56
[2017-01-09] MEDS: HYDROCODONE/APAP (7.5/325) TAB PO PRN ×4 (08:07→20:46)
[2017-01-09 08:09] VITALS: BP 145/74; RESP 16
[2017-01-09] MEDS: PREGABALIN 50 MG CAP PO SCH ×2 (08:23→20:45)
[2017-01-09] MEDS: ASPIRIN (EC) 325 MG TAB PO SCH ×2 (08:23→20:45)
[2017-01-09] MEDS: DOCUSATE SODIUM 100 MG CAP PO SCH ×2 (08:23→20:45)
--- NOTE | 2017-01-09 12:41 | PN ---
Date/Time of Note Date/Time of Note DATE: 01/09/17 TIME: 12:40 Assessment/Plan VTE Prophylaxis VTE Prophylaxis Intervention: other Lines/Catheters IV Catheter Type (from [facility]): Saline Lock Urinary Cath still in place: No Assessment/Plan Chief Complaint/Hosp Course ASSESSMENT AND PLAN: 1. 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 The patient is status post left total hip arthroplasty with subtrochanteric femoral shortening osteotomy. Continue postsurgical care and pain medication. PT, OT evaluate and treat. Continue pain management. 2. Anemia, likely post surgical, stable, recommend to transfuse if hemoglobin decreases below 7.5, recommend to start on ferrous sulfate plus vitamin C 3. Deep venous thrombosis prophylaxis, on aspirin. 4. Gastrointestinal prophylaxis, on Protonix. We will continue to monitor the patient closely. Further recommendations, management, and treatment as per clinical course. 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 HEENT: Atraumatic, normocephalic. The pupils are equal and round . Neck: Supple with full range of motion. Chest: Normal expansion of the thorax during inspiration Lungs: Clear to auscultation bilaterally Heart: Normal S1-S2, Regular rhythm and rate. Abdomen: Soft , nontender, nondistended , bowel sounds are present. Extremities: Normal to inspection, no edema no cyanosis, surgical site is dry and clean Neurologic: Normal mental status,The patient is awake, alert and oriented . Results Result Diagram: 01/09/17 0505 01/09/17 0505 Results 24 hrs Laboratory Tests Test 01/09/17 05:05 Hemoglobin 8.5 L Hematocrit 25.7 L Sodium Level 135 Potassium Level 4.5 Chloride Level 94 L Carbon Dioxide Level 34 H Anion Gap 12 Blood Urea Nitrogen 14 Creatinine 0.73 Glucose Level 114 Calcium Level 8.8 Iron Level < 10 L Total Iron Binding Capacity 260 Percent Iron Saturation Ferritin 70.8 Medications Medications Current Medications Lactated Ringer's (Lr) 1,000 ml @ 100 mls/hr Q10H IV Last administered on 11:03; Admin Dose 100 MLS/HR; Start 01/06/17 at 05:00 Miscellaneous Information 1 ea NOTE XX ; Start 01/06/17 at 10:30; Stop 01/10/17 at 10:29 Hydromorphone HCl (Dilaudid) 1 mg Q3H PRN IV PAIN LEVEL 8-10 Last administered on 01/08/17 22:16; Admin Dose 1 MG; Start 01/06/17 at 12:00 Ondansetron HCl (Zofran Inj) 4 mg Q6H PRN IV NAUSEA AND/OR VOMITING; Start 01/06 at 12:00 Bisacodyl (Dulcolax Supp) 10 mg Q12H PRN [place] CONSTIPATION; Start 01/06/17 at 12: 00 Magnesium Hydroxide (Milk Of Mag) 30 ml BID PRN PO CONSTIPATION Last administered on 01/08/17 18:55; Admin Dose 30 ML; Start 01/06/17 at 12:00 Sodium Biphosphate/ Sodium Phosphate (Fleet Enema) 133 ml DAILY PRN [place] CONSTIPATION; Start 01/06/17 at 12:00 Docusate Sodium (Colace) 100 mg BID PO Last administered on 01/09/17 08:23; Admin Dose 100 MG; Start 01/06/17 at 21:00 Diphenhydramine HCl (Benadryl) 25 mg Q6H PRN PO PRURITUS; Start 01/06/17 at 12: 00 Aspirin (Ecotrin) 325 mg BID PO Last administered on 01/09/17 08:23; Admin Dose 325 MG; Start 01/07/17 at 09:00 Pantoprazole (Protonix Tab) 40 mg BID@06,18 PO Last administered on 01/08/17 18 :43; Admin Dose 40 MG; Start 01/06/17 at 18:00 Pregabalin (Lyrica) 50 mg BID PO Last administered on 01/09/17 08:23; Admin Dose 50 MG; Start 01/06/17 at 21:00 Acetaminophen/ Hydrocodone Bitart ([place] (7.5-325)) 1 tab Q4H PRN PO PAIN LEVEL 1-5 Last administered on 01/08/17 13:34; Admin Dose 1 TAB; Start 01/08/17 at 08:30 Acetaminophen/ Hydrocodone Bitart ([place] (7.5-325)) 2 tab Q4H PRN PO MODERATE PAIN LEVEL 4-6 Last administered on 01/09/17 11:56; Admin Dose 2 TAB; Start 01/08 at 09:00 KIESHA ISRAEL MD Jan 09, 2017 12:41
[2017-01-09] MEDS: PANTOPRAZOLE (EC) 40 MG TAB PO SCH (16:15)
[2017-01-09] MEDS: MAGNESIUM HYDROXIDE 30ML CUP PO PRN (19:05)
[2017-01-09 19:35] VITALS: BP 118/61; RESP 19
[2017-01-09] MEDS: NACL 0.9% 3 ML SYG IV SCH (20:50)
[2017-01-10] MEDS: HYDROCODONE/APAP (7.5/325) TAB PO PRN ×3 (01:09→09:21)
[2017-01-10] MEDS: HYDROmorphONE 1 MG/ML SYG IV PRN ×3 (02:14→11:25)
[2017-01-10 04:59] LABS: HEMATOCRIT 24.9 % (42.0-52.0); HEMOGLOBIN 8.2 g/dl (14.0-18.0)
[2017-01-10 05:14] LABS: POTASSIUM 4.2 mmol/L (3.5-5.1)
[2017-01-10 05:16] LABS: CREATININE 0.75 mg/dl (0.61-1.24)
[2017-01-10 05:17] LABS: CALCIUM 8.4 mg/dl (8.4-10.2)
[2017-01-10] MEDS: PANTOPRAZOLE (EC) 40 MG TAB PO SCH ×2 (05:19→18:00)
[2017-01-10 08:23] VITALS: BP 128/63; RESP 18
--- NOTE | 2017-01-10 08:28 | PN ---
Date/Time of Note Date/Time of Note DATE: 01/10/17 TIME: 08:24 Assessment/Plan Lines/Catheters IV Catheter Type (from Nrsg): Saline Lock Matos in Place (from Nrsg): No Assessment/Plan Assessment/Plan POD #4, s/p left posterior RACHANA, subtrochanteric shortening femoral osteotomy -pain meds as needed -ASA/SCDs for DVT prophylaxis -OOB with PT -posterior hip precautions -dressing changed -apply ice over anterior hip -possible discharge home this afternoon versus tomorrow depending on pain control Subjective 24 Hr Interval Summary No acute overnight events. Still having moderate pain and requesting IV pain medication. Progressing with PT. States swelling overall is improving. Encouraged him once again to stop overdoing it and follow our recommendations and PT protocol. Possible discharge home today versus tomorrow. Exam/Review of Systems Vital Signs Vitals Vital Signs Date Time Temp Pulse Resp B/P Pulse Ox O2 Delivery O2 Flow Rate FiO2 01/09/17 19:35 99.0 76 19 118/61 96 01/07/17 00:00 Nasal Cannula 01/06/17 20:15 2.0 Intake and Output 01/09/17 01/09/17 01/10/17 15:00 23:00 07:00 Intake Total 1400 ml Output Total 1000 ml Balance 1400 ml -1000 ml Exam Free Text/Dictation Dressing dry Incision clean, dry, and intact without redness or drainage 5/5 Quadriceps, Tibialis Anterior, EHL, Gastroc, Soleus, Peroneals Normal sensation Moderate soft tissue swelling Palpable DT/PT, CR <2 sec No distal edema Results Result Diagram: 01/10/17 0435 01/10/17 0435 AMINA CRONIN PA-C Jan 10, 2017 08:28
[2017-01-10] MEDS: LACTATED RINGER'S 1,000 ML IV SCH ×2 (09:00→19:00)
[2017-01-10] MEDS: PREGABALIN 50 MG CAP PO SCH ×2 (09:20→21:18)
[2017-01-10] MEDS: ASPIRIN (EC) 325 MG TAB PO SCH ×2 (09:20→21:18)
[2017-01-10] MEDS: DOCUSATE SODIUM 100 MG CAP PO SCH ×2 (09:20→21:18)
--- NOTE | 2017-01-10 10:15 | PN ---
Date/Time of Note Date/Time of Note DATE: 01/10/17 TIME: 10:12 Assessment/Plan VTE Prophylaxis VTE Prophylaxis Intervention: other Lines/Catheters [facility] Saline Lock Urinary Cath still in place: No Assessment/Plan Chief Complaint/Hosp Course ASSESSMENT AND PLAN: 1. 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 The patient is status post left total hip arthroplasty with subtrochanteric femoral shortening osteotomy. Continue postsurgical care and pain medication. PT, OT evaluate and treat. Continue pain management. 2. Anemia, likely post surgical, stable, recommend to transfuse if hemoglobin decreases below 7.5, recommend to start on ferrous sulfate plus vitamin C 3. Deep venous thrombosis prophylaxis, on aspirin. 4. Gastrointestinal prophylaxis, on Protonix. We will continue to monitor the patient closely. Further recommendations, management, and treatment as per clinical course. Disposition as per orthopedic surgeon Patient is medically stable for discharge with a close follow up with orthopedic surgeon as outpatient Problems: Subjective 24 Hr Interval Summary Free Text/Dictation Patient continues to complain of having left hip pain Ambulate with max assist No nausea vomiting diarrhea Exam/Review of Systems Vital Signs Vitals Vital Signs Date Time Temp Pulse Resp B/P Pulse Ox O2 Delivery O2 Flow Rate FiO2 01/10/17 08:23 97.9 64 18 128/63 99 01/07/17 00:00 Nasal Cannula 01/06/17 20:15 2.0 Intake and Output 01/09/17 01/09/17 01/10/17 15:00 23:00 07:00 Intake Total 1400 ml Output Total 1000 ml Balance 1400 ml -1000 ml Exam General: The patient is well-developed, Not in acute distress. HEENT: Atraumatic, normocephalic. The pupils are equal and round . Neck: Supple with full range of motion. Chest: Normal expansion of the thorax during inspiration Lungs: Clear to auscultation bilaterally Heart: Normal S1-S2, Regular rhythm and rate. Abdomen: Soft , nontender, nondistended , bowel sounds are present. Extremities: Surgical site is dry and clean, no edema no cyanosis Neurologic: Normal mental status,The patient is awake, alert and oriented . Results Result Diagram: 01/10/17 0435 01/10/17 0435 Results 24 hrs Laboratory Tests Test 01/10/17 04:35 Hemoglobin 8.2 L Hematocrit 24.9 L Sodium Level 133 L Potassium Level 4.2 Chloride Level 92 L Carbon Dioxide Level 32 H Anion Gap 13 Blood Urea Nitrogen 12 Creatinine 0.75 Glucose Level 129 Calcium Level 8.4 Medications Medications Current Medications Lactated Ringer's (Lr) 1,000 ml @ 100 mls/hr Q10H IV Last administered on 11:03; Admin Dose 100 MLS/HR; Start 01/06/17 at 05:00 Miscellaneous Information 1 ea NOTE XX ; Start 01/06/17 at 10:30; Stop 01/10/17 at 10:29 Hydromorphone HCl (Dilaudid) 1 mg Q3H PRN IV PAIN LEVEL 8-10 Last administered on 01/10/17 07:00; Admin Dose 1 MG; Start 01/06/17 at 12:00 Ondansetron HCl (Zofran Inj) 4 mg Q6H PRN IV NAUSEA AND/OR VOMITING; Start 01/06 at 12:00 Bisacodyl (Dulcolax Supp) 10 mg Q12H PRN [place] CONSTIPATION; Start 01/06/17 at 12: 00 Magnesium Hydroxide (Milk Of Mag) 30 ml BID PRN PO CONSTIPATION Last administered on 01/09/17 19:05; Admin Dose 30 ML; Start 01/06/17 at 12:00 Sodium Biphosphate/ Sodium Phosphate (Fleet Enema) 133 ml DAILY PRN [place] CONSTIPATION; Start 01/06/17 at 12:00 Docusate Sodium (Colace) 100 mg BID PO Last administered on 01/10/17 09:20; Admin Dose 100 MG; Start 01/06/17 at 21:00 Diphenhydramine HCl (Benadryl) 25 mg Q6H PRN PO PRURITUS; Start 01/06/17 at 12: 00 Aspirin (Ecotrin) 325 mg BID PO Last administered on 01/10/17 09:20; Admin Dose 325 MG; Start 01/07/17 at 09:00 Pantoprazole (Protonix Tab) 40 mg BID@06,18 PO Last administered on 01/10/17 05:19; Admin Dose 40 MG; Start 01/06/17 at 18:00 Pregabalin (Lyrica) 50 mg BID PO Last administered on 01/10/17 09:20; Admin Dose 50 MG; Start 01/06/17 at 21:00 Acetaminophen/ Hydrocodone Bitart ([place] (7.5-325)) 1 tab Q4H PRN PO PAIN LEVEL 1-5 Last administered on 01/08/17 13:34; Admin Dose 1 TAB; Start 01/08/17 at 08:30 Acetaminophen/ Hydrocodone Bitart ([place] (7.5-325)) 2 tab Q4H PRN PO MODERATE PAIN LEVEL 4-6 Last administered on 01/10/17 09:21; Admin Dose 2 TAB; Start 01/08/17 at 09:00 KIESHA ISRAEL MD Jan 10, 2017 10:15
[2017-01-10] MEDS: ASCORBIC ACID 500 MG TAB PO SCH (11:23)
[2017-01-10] MEDS: FERROUS SULFATE (EC) 325 MG TAB PO SCH (11:23)
[2017-01-10] MEDS ORDERED: oxyCODONE 5 MG TAB PO PRN (12:30)
[2017-01-10] MEDS: oxyCODONE 5 MG TAB PO PRN ×2 (13:32→20:04)
[2017-01-10] MEDS ORDERED: KETOROLAC 15 MG INJ IV STA (15:16)
[2017-01-10] MEDS ORDERED: LORAZEPAM 2 MG INJ IV PRN (15:30)
[2017-01-10] MEDS: CYCLOBENZAPRINE 10 MG TAB PO SCH ×2 (15:30→21:18)
[2017-01-10] MEDS: traMADol 50 MG TAB PO SCH ×3 (15:30→23:38)
[2017-01-10] MEDS ORDERED: oxyCODONE (CR) 20 MG TAB [oxyCONTIN] PO SCH (16:00)
[2017-01-10] MEDS ORDERED: traMADol 50 MG TAB PO SCH (17:00)
[2017-01-10] MEDS ORDERED: LORAZEPAM 1 MG TAB PO PRN (17:30)
[2017-01-10 19:58] VITALS: BP 125/65; RESP 16
[2017-01-10] MEDS ORDERED: CYCLOBENZAPRINE 10 MG TAB PO SCH (21:00)
[2017-01-10] MEDS: oxyCODONE (CR) 20 MG TAB [oxyCONTIN] PO SCH (21:18)
[2017-01-10] MEDS: NACL 0.9% 3 ML SYG IV SCH (22:00)
[2017-01-11] MEDS: oxyCODONE 5 MG TAB PO PRN ×3 (00:11→18:09)
[2017-01-11] MEDS: traMADol 50 MG TAB PO SCH ×5 (03:26→19:30)
[2017-01-11] MEDS: LACTATED RINGER'S 1,000 ML IV SCH ×2 (05:00→15:00)
[2017-01-11 05:10] LABS: HEMATOCRIT 24.8 % (42.0-52.0)
[2017-01-11 05:32] LABS: POTASSIUM 4.5 mmol/L (3.5-5.1)
[2017-01-11 05:34] LABS: CREATININE 0.78 mg/dl (0.61-1.24)
[2017-01-11 05:35] LABS: CALCIUM 8.6 mg/dl (8.4-10.2)
[2017-01-11] MEDS: PANTOPRAZOLE (EC) 40 MG TAB PO SCH ×2 (06:00→18:08)
[2017-01-11 08:47] VITALS: BP 143/68; RESP 18
[2017-01-11] MEDS: ASPIRIN (EC) 325 MG TAB PO SCH ×2 (08:51→20:55)
[2017-01-11] MEDS: FERROUS SULFATE (EC) 325 MG TAB PO SCH (08:51)
[2017-01-11] MEDS: DOCUSATE SODIUM 100 MG CAP PO SCH ×2 (08:51→20:55)
[2017-01-11] MEDS: CYCLOBENZAPRINE 10 MG TAB PO SCH ×3 (08:52→20:55)
[2017-01-11] MEDS: PREGABALIN 50 MG CAP PO SCH ×2 (08:52→20:56)
[2017-01-11] MEDS: ASCORBIC ACID 500 MG TAB PO SCH (08:53)
[2017-01-11] MEDS: oxyCODONE (CR) 20 MG TAB [oxyCONTIN] PO SCH ×2 (08:53→21:00)
[2017-01-11] MEDS ORDERED: GABA100C PO (10:24)
--- NOTE | 2017-01-11 10:47 | PN ---
Date/Time of Note Date/Time of Note DATE: 01/11/17 TIME: 10:45 Assessment/Plan VTE Prophylaxis VTE Prophylaxis Intervention: other Lines/Catheters IV [facility] Saline Lock Urinary Cath still in place: No Assessment/Plan Chief Complaint/Hosp Course ASSESSMENT AND PLAN: 1. 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 The patient is status post left total hip arthroplasty with subtrochanteric femoral shortening osteotomy. Continue postsurgical care and pain medication. PT, OT evaluate and treat. Continue pain management. 2. Anemia, likely post surgical, stable, recommend to transfuse if hemoglobin decreases below 7.5, recommend to start on ferrous sulfate plus vitamin C 3. Anxiety, recommend to discontinue Ativan place patient on Xanax 3. Deep venous thrombosis prophylaxis, on aspirin. 4. Gastrointestinal prophylaxis, on Protonix. We will continue to monitor the patient closely. Further recommendations, management, and treatment as per clinical course. Disposition as per orthopedic surgeon Patient is medically stable for discharge with a close follow up with orthopedic surgeon as outpatient Problems: Subjective 24 Hr Interval Summary Free Text/Dictation Patient had an episode of anxiety yesterday which improved with Ativan This morning the pain is well controlled Tolerating oral intake Exam/Review of Systems Vital Signs Vitals Vital Signs Date Time Temp Pulse Resp B/P Pulse Ox O2 Delivery O2 Flow Rate FiO2 01/11/17 08:47 98.2 78 18 143/68 94 Intake and Output 01/10/17 01/10/17 01/11/17 15:00 23:00 07:00 Intake Total 1500 ml 1000 ml Output Total 1560 ml 1450 ml Balance -60 ml -450 ml Exam General: The patient is well-developed, Not in acute distress. HEENT: Atraumatic, normocephalic. The pupils are equal and round . Neck: Supple with full range of motion. Chest: Normal expansion of the thorax during inspiration Lungs: Clear to auscultation bilaterally Heart: Normal S1-S2, Regular rhythm and rate. Abdomen: Soft , nontender, nondistended , bowel sounds are present. Extremities: Normal to inspection, no edema no cyanosis, surgical site is dry and clean, no evidence of Gabe sign Neurologic: Normal mental status,The patient is awake, alert and oriented . Results Result Diagram: 01/11/17 0426 01/11/17 0424 Results 24 hrs Laboratory Tests Test 01/11/17 04:24 01/11/17 04:26 Sodium Level 133 L Potassium Level 4.5 Chloride Level 94 L Carbon Dioxide Level 31 Anion Gap 13 Blood Urea Nitrogen 15 Creatinine 0.78 Glucose Level 123 Calcium Level 8.6 Hemoglobin 8.0 L Hematocrit 24.8 L Medications Medications Current Medications Lactated Ringer's (Lr) 1,000 ml @ 100 mls/hr Q10H IV Last administered on 11:03; Admin Dose 100 MLS/HR; Start 01/06/17 at 05:00 Ondansetron HCl (Zofran Inj) 4 mg Q6H PRN IV NAUSEA AND/OR VOMITING; Start 01/06 at 12:00 Bisacodyl (Dulcolax Supp) 10 mg Q12H PRN [place] CONSTIPATION; Start 01/06/17 at 12: 00 Magnesium Hydroxide (Milk Of Mag) 30 ml BID PRN PO CONSTIPATION Last administered on 01/09/17 19:05; Admin Dose 30 ML; Start 01/06/17 at 12:00 Sodium Biphosphate/ Sodium Phosphate (Fleet Enema) 133 ml DAILY PRN [place] CONSTIPATION; Start 01/06/17 at 12:00 Docusate Sodium (Colace) 100 mg BID PO Last administered on 01/11/17 08:51; Admin Dose 100 MG; Start 01/06/17 at 21:00 Diphenhydramine HCl (Benadryl) 25 mg Q6H PRN PO PRURITUS; Start 01/06/17 at 12: 00 Aspirin (Ecotrin) 325 mg BID PO Last administered on 01/11/17 08:51; Admin Dose 325 MG; Start 01/07/17 at 09:00 Pantoprazole (Protonix Tab) 40 mg BID@06,18 PO Last administered on 01/10/17 05:19; Admin Dose 40 MG; Start 01/06/17 at 18:00 Pregabalin (Lyrica) 50 mg BID PO Last administered on 01/11/17 08:52; Admin Dose 50 MG; Start 01/06/17 at 21:00 Ferrous Sulfate (Ferrous Sulfate (Ec)) 325 mg DAILY PO Last administered on 08:51; Admin Dose 325 MG; Start 01/10/17 at 10:30 Ascorbic Acid (Vitamin C) 500 mg DAILY PO Last administered on 01/11/17 08:53 ; Admin Dose 500 MG; Start 01/10/17 at 10:30 Oxycodone HCl (Roxicodone) 5 mg Q4H PRN PO PAIN LEVEL 1-5; Start 01/10/17 at 12 :30 Oxycodone HCl (Roxicodone) 10 mg Q4H PRN PO PAIN LEVEL 6-10 Last administered on 01/11/17 03:56; Admin Dose 10 MG; Start 01/10/17 at 12:30 Cyclobenzaprine HCl (Flexeril) 10 mg TID PO Last administered on 01/11/17 08: 52; Admin Dose 10 MG; Start 01/10/17 at 15:30 Tramadol HCl (Ultram) 50 mg Q4H PO Last administered on 01/11/17 07:49; Admin Dose 50 MG; Start 01/10/17 at 15:30 Lorazepam (Ativan) 1 mg Q8 PRN PO ANXIETY; Start 01/10/17 at 17:30 Oxycodone HCl (Oxycontin) 20 mg BID PO Last administered on 01/11/17 08:53; Admin Dose 20 MG; Start 01/10/17 at 21:00 KIESHA ISRAEL MD Jan 11, 2017 10:47
--- NOTE | 2017-01-11 11:09 | PN ---
Date/Time of Note Date/Time of Note DATE: 01/11/17 TIME: 11:06 Assessment/Plan Lines/Catheters IV Catheter Type (from Nrsg): Saline Lock Matos in Place (from Nrsg): No Assessment/Plan Assessment/Plan POD #5, s/p left posterior RACHANA, shortening femoral osteotomy -pain meds as needed -ASA/SCDs for DVT prophylaxis -OOB with PT -dressing changed -stat venous doppler r/o DVT -continue ativan prn for anxiety -if doppler negative, will discharge home today Subjective 24 Hr Interval Summary No acute overnight events. Ativan significantly helped the patient symptoms after apparent panic attack. Pain better controlled. VSS, afebrile. H&H low but stable. Seen with Dr. Weiss and Dr. Elizondo today. Will plan to discharge patient home today with home health. Exam/Review of Systems Vital Signs Vitals Vital Signs Date Time Temp Pulse Resp B/P Pulse Ox O2 Delivery O2 Flow Rate FiO2 01/11/17 08:47 98.2 78 18 143/68 94 Intake and Output 01/10/17 01/10/17 01/11/17 15:00 23:00 07:00 Intake Total 1500 ml 1000 ml Output Total 1560 ml 1450 ml Balance -60 ml -450 ml Exam Free Text/Dictation Dressing dry Incision clean, dry, and intact without redness or drainage 5/5 Quadriceps, Tibialis Anterior, EHL, Gastroc, Soleus, Peroneals Normal sensation Moderate soft tissue swelling Palpable DT/PT, CR <2 sec No distal edema Results Result Diagram: 01/11/17 0426 01/11/17 0424 AMINA CRONIN PA-C Jan 11, 2017 11:09
[2017-01-11] MEDS ORDERED: ALPR0.25 PO (11:15)
[2017-01-11] MEDS ORDERED: OXYC5CAP17 PO (11:15)
[2017-01-11] MEDS ORDERED: DOCU-216 PO (11:15)
[2017-01-11] MEDS ORDERED: POLY17PO6 PO (11:15)
--- NOTE | 2017-01-11 12:39 | RADRPT ---
PROCEDURE: US Lower extremity Venous. CLINICAL INDICATION: Left leg swelling TECHNIQUE: Multiple sonographic images of the left lower extremity deep venous system was obtained utilizing grayscale, color-flow, compressive sonography and doppler imaging with augmentation. The images were reviewed on a PACS workstation. COMPARISON: None. 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 RPTAT: AA IMPRESSION: No sonographic evidence for deep venous thrombosis. .Chandana Beal MD, MD Date Time Electronically viewed and signed by .Chandana Beal MD, on 01/11/2017 12:38 .S/
[2017-01-11 20:21] VITALS: BP 122/69; RESP 20
--- NOTE | 2017-01-12 11:12 | DS ---
DATE OF ADMISSION: 01/06/2017 DATE OF DISCHARGE: 01/11/2017 CONDITION UPON DISCHARGE: Stable ADMITTING DIAGNOSIS: Left hip osteoarthritis secondary to developmental dysplasia of the hip. DISCHARGE DIAGNOSIS: Status post left total hip arthroplasty with subtrochanteric femoral shortening osteotomy. PROCEDURE PERFORMED: Left total hip arthroplasty with subtrochanteric femoral shortening osteotomy. HOSPITAL COURSE: This is a 61-year-old male who was seen in the clinic initially complaining of bilateral hip pain, left greater than right. X-rays demonstrated advanced osteoarthritis of the hip, secondary to severe developmental dysplasia of the hip. Given the x-ray and physical exam findings , it was thought he would benefit from a left posterior total hip arthroplasty. On 01/06/2017, the patient was admitted and taken to the operating room where he underwent a left posterior total hip arthroplasty. There were no intraoperative complications. The patient tolerated the procedure well. He was taken to the recovery room in stable condition. He began physical therapy on postoperative day 1. His progress throughout his hospital stay was slower than expected. His pain was difficult to manage initially, which delayed his physical therapy and postoperative hospital course. Using a combination of anxiolytics as well as pain medications, the pain was ultimately managed. He was deemed stable for discharge on postoperative day #5. Aspirin and SCDs were used for DVT prophylaxis. He remained hemodynamically stable and neurovascularly intact. Prior to discharge , the incision was inspected and noted to be clean, dry and intact. Dressing changes were done prior to the patient going home. LABORATORY ANALYSIS: Upon discharge, hemoglobin of 8.0, hematocrit 24.8. Chemistry panel was within normal limits. DISCHARGE MEDICATIONS: 1. Oxycodone 10 mg. 2. Tramadol 50 mg. 3. Aspirin 325 mg p.o. 4. Protonix 40 mg. 5. Xanax 0.25 mg. 8. Colace 100 mg. 9. Milk of magnesia 17 grams. 10. Neurontin 100 mg. In addition, the patient is to resume all his normal home medications. DISCHARGE INSTRUCTIONS: The patient will be discharged home in stable condition. He is to resume a normal diet. Activities include weightbearing as tolerated on the left lower extremity. He will begin physical therapy with home health. He will be discharged home on the medications noted above and is to resume all his normal home medications. The patient is to call the office or go to the emergency room for any concerns including increased redness, swelling, drainage or fever or any concerns regarding the operation or site of incision. FOLLOWUP: The patient will need to follow up in the office in 1 week. Dictated By: AMINA ROBBINS for ARSEN TORIBIO/ARISTEO Conf#: [id number] DID#: [id number] MTDD
== END 2017-01-11 21:30 | disposition home or self-care (01) | DRG 470 ==
LOC: REC 05:33 → MS1 13:35
PROVIDERS: ADMIT Orthopaedic Surgery; ATTEND Orthopaedic Surgery
PROC: 0QB70ZZ Excision of Left Upper Femur, Open Approach (ICD-10-PCS; 2017-01-06)
PROC: 0SRB02Z Replacement of Left Hip Joint with Metal on Polyethylene Synthetic Substitute, Open Approach (ICD-10-PCS; principal; 2017-01-06 07:00)
DX: M16.12 Unilateral primary osteoarthritis, left hip (principal); D62 Acute posthemorrhagic anemia; F41.9 Anxiety disorder, unspecified
CPT/HCPCS: 72170; 73500; 73530; 80048; 81001; 81003; 82728; 83540; 85014; 85018; 86850; 86900; 86901; 86920; 87086; 88304; 88311; 93971; 97110; 97116; 97162; 97167; 97530; C1713; C1776; C9290; J0131; J0330; J0690; J1100; J1170; J1644; J2060; J2250; J2405; J2765; J3010; J3370; J7120

== ENCOUNTER → 2017-01-17 | Outpatient (CLI) | payer OTHER ==
--- NOTE | 2017-01-17 17:39 | RADRPT ---
PROCEDURE: XR Left Hip and pelvis. CLINICAL INDICATION: Left hip pain. Pelvic pain. TECHNIQUE: Two views. Frontal pelvis and lateral left hip. COMPARISON: 01/06/2017. FINDINGS: There is a left hip total arthroplasty which appears satisfactory. Left lateral skin conor are on ce again noted. The left-sided surgical drain has been removed. 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 There is no fracture or dislocation. There is no lytic or blastic lesion. IMPRESSION: 1. Satisfactory postoperative appearance of the left hip. 2. Severe degenerative changes of the right hip with marked deformity. RPTAT: QQ .Sigifredo Porter MD, MD Date Time Electronically viewed and signed by .Sigifredo Porter MD, on 01/17/2017 17:39 .R/
--- NOTE | 2017-01-18 05:27 | HKNOTE ---
DATE OF SERVICE: 01/17/2017 INTERVAL HISTORY: The patient presents today for his first postoperative evaluation on his left hip. He is 10 days status post left total hip arthroplasty with subtrochanteric femoral shortening osteotomy. He is doing better, overall. His pain has been improving. He is actually cutting his oxycodone prescriptions in half. He has not begun home health physical therapy but has been evaluated by the nurse. He is taking aspirin twice daily for DVT prophylaxis as well. He does appear somewhat pale on initial exam today, but denies any chest pain, shortness of breath or significant dizziness. He did have a long car ride and is somewhat fatigued however. He also states the swelling and ecchymosis are improving. He presents today for his first postoperative evaluation. PHYSICAL EXAMINATION: On exam today, he is alert and oriented x4 and in no acute distress. He does have some mild pallor on exam and his skin is somewhat clammy. He is ambulating with a front-wheeled walker toe-touch weightbearing. Exam of the incision demonstrates to be clean, dry and intact. It is well healing. Lupillo are in place. There is some moderate soft tissue swelling. No ecchymosis noted. There is no significant erythema or warmth noted. The compartments are otherwise soft. Homans sign is negative. He is neurovascularly intact distally. IMAGING: X-rays of the left hip were obtained today and reviewed by me. They demonstrate good anatomic alignment. There is no fracture or dislocation identified. ASSESSMENT: Ten days status post left total hip arthroplasty with subtrochanteric femoral shortening osteotomy. PLAN: The lupillo were removed today and Steri-Strips were applied. He is to continue aspirin twice daily for 6 weeks for DVT prophylaxis. Given skin findings despite him being relatively asymptomatic, we would like to obtain a CBC to just check his H and H. He should begin taking iron supplements daily and keeping himself well hydrated meantime. Additionally, he should begin physical therapy with home health as soon as possible. He is to continue toe- touch weightbearing with a front-wheel walker until we see him back for repeat evaluation. We will see him back in 4 weeks. He is to call the office immediately if he has any concerns. Dictated By: AMINA ROBBINS for ARSEN TORIBIO/ARISTEO Conf#: [id number] [facility]#: [id number] MTDD
== END | disposition home or self-care (01) ==
LOC: HKI 15:36
PROVIDERS: ATTEND Orthopaedic Surgery
DX: Z47.1 Aftercare following joint replacement surgery (principal); Z96.642 Presence of left artificial hip joint
CPT/HCPCS: 73502

== ENCOUNTER → 2017-02-14 | Outpatient (CLI) | payer OTHER ==
--- NOTE | 2017-02-14 16:12 | RADRPT ---
PROCEDURE: XR Left Hip and pelvis. CLINICAL INDICATION: Left hip pain. Pelvic pain. Postop. TECHNIQUE: Two views. Frontal pelvis and frontal left hip. COMPARISON: 01/17/2017. FINDINGS: There is no fracture or dislocation. The soft tissues are normal. There is a left hip total arthroplasty which appears satisfactory. There are 2 cerclage wires around the proximal shaft of the left femur. There is severe deformity of the right hip, unchanged. There is no lytic or blastic lesion. There are degenerative changes of the lower lumbar spine. IMPRESSION: 1. Satisfactory postoperative appearance of the left hip. 2. Severe deformity of the right hip, unchanged. 3. Degenerative changes of the lower lumbar spine. RPTAT: QQ .Sigifredo Porter MD, MD Date Time Electronically viewed and signed by .Sigifredo Porter MD, on 02/14/2017 16:11 .R/
== END | disposition home or self-care (01) ==
LOC: HKI 15:37
PROVIDERS: ATTEND Orthopaedic Surgery
DX: M25.552 Pain in left hip (principal); Z96.642 Presence of left artificial hip joint
CPT/HCPCS: 73502

== ENCOUNTER → 2017-03-28 | Outpatient (CLI) | payer OTHER ==
--- NOTE | 2017-03-28 17:32 | RADRPT ---
PROCEDURE: XR Left hip and pelvis. CLINICAL INDICATION: Left hip pain and pelvic pain. TECHNIQUE: 3 views. Frontal pelvis. Frontal and lateral left hip. COMPARISON: 02/14/2017. FINDINGS: There are severe degenerative changes of the right hip with joint space narrowing, osteophytes, suba rticular sclerosis, subarticular cysts, and severe deformity. There is a left hip total arthroplasty which appears satisfactory. There is no fracture, dislocatio n, or loosening. Proximal femoral shaft cerclage wires are noted. There are degenerative changes of the lower lumbar spine. There is no lytic or blastic lesion. IMPRESSION: 1. Severe degenerative changes of the right hip. 2. Satisfactory postoperative appearance of the left hip. RPTAT: QQ .Sigifredo Porter MD, MD Date Time Electronically viewed and signed by .Sigifredo Porter MD, on 03/28/2017 17:32 .R/
== END | disposition home or self-care (01) ==
LOC: HKI 15:33
PROVIDERS: ATTEND Orthopaedic Surgery
DX: Z47.1 Aftercare following joint replacement surgery (principal); M25.551 Pain in right hip; M16.11 Unilateral primary osteoarthritis, right hip; M16.12 Unilateral primary osteoarthritis, left hip; Q65.1 Congenital dislocation of hip, bilateral; Z96.642 Presence of left artificial hip joint
CPT/HCPCS: 73502; Z7500; G0463

== ENCOUNTER → 2017-05-09 | Outpatient (CLI) | payer OTHER ==
--- NOTE | 2017-05-09 23:27 | RADRPT ---
PROCEDURE: XR Pelvis and Hips. CLINICAL INDICATION: Pelvic pain. Bilateral hip pain. TECHNIQUE: Five views. Frontal pelvis. Frontal and lateral right hip. Frontal and lateral left hip. COMPARISON: 03/28/2017. FINDINGS: There are severe degenerative changes of the right hip with marked deformity. There is a left hip t otal arthroplasty which appears satisfactory. Proximal left femoral cerclage wires are once again n oted. There are degenerative changes of the lower lumbar spine. There is no lytic or blastic lesion. IMPRESSION: 1. Severe degenerative changes of the right hip. 2. Satisfactory postoperative appearance of the left hip. 3. No change from 03/28/2017. RPTAT: QQ .Sigifredo Porter MD, MD Date Time Electronically viewed and signed by .Sigifredo Porter MD, on 05/09/2017 23:27 .R/
== END | disposition home or self-care (01) ==
LOC: HKI 15:58
PROVIDERS: ATTEND Orthopaedic Surgery
DX: M25.551 Pain in right hip (principal); M25.552 Pain in left hip; Z96.642 Presence of left artificial hip joint; R10.2 Pelvic and perineal pain
CPT/HCPCS: 73523

== ENCOUNTER 2017-05-24 05:42 | Inpatient (IN) | payer OTHER ==
[2017-05-24] VITALS (21 sets, daily range): BP systolic 75–159; BP diastolic 54–80; PULSE 62–84; RESP 15–49; Ht 172.7 cm; Wt 97.9 kg
[~2017-05-24] VITALS: Ht 172.7 cm; Wt 97.9 kg
[2017-05-24] MEDS ORDERED: CELECOXIB 400 MG PO X1 DOSE PO ONE (06:00)
[2017-05-24] MEDS ORDERED: PREGABALIN 300 MG PO X1 PO ONE (06:00)
[2017-05-24] MEDS ORDERED: traMADOL 50 MG TAB X 1 DOSE PO ONE (06:00)
[2017-05-24] MEDS ORDERED: TRANEXAMIC ACID 860 MG in SOD CHLORIDE 0.9% 100 ML IVPB ONE (06:00)
[2017-05-24] MEDS ORDERED: BUPIVACAINE LIPOSOME/PF 266 MG/20 ML VIAL INFIL ONE (06:00)
[2017-05-24] MEDS ORDERED: LACTATED RINGER'S 1,000 ML IV SCH (06:00)
[2017-05-24] MEDS ORDERED: PAIN COCKTAIL-CEFUROXIME IRR ONE ×7 (06:00)
[2017-05-24] MEDS ORDERED: oxyCODONE (CR) 10 MG TAB [oxyCONTIN] X1 DOSE PO ONE (06:00)
[2017-05-24] MEDS ORDERED: ONDANSETRON 4 MG IV X 1 DOSE IV ONE (06:00)
[2017-05-24] MEDS ORDERED: TRANEXAMIC ACID 860 MG in SOD CHLORIDE 0.9% 91.4 ML IV ONE (06:00)
[2017-05-24] MEDS ORDERED: CEFAZOLIN 2GM/50 ML (PMX) 50 ML X1 BEFORE INCISION IVPB ONE (06:00)
[2017-05-24] MEDS ORDERED: BACITRACIN 50000 UNITS INJ ONE (06:36)
[2017-05-24] MEDS ORDERED: IBUP200C11 PO (06:50)
[2017-05-24] MEDS ORDERED: TRAM50TA2 PO (06:50)
[2017-05-24] MEDS ORDERED: PROPOFOL 100 ML ONE (06:51)
[2017-05-24] MEDS ORDERED: CEFAZOLIN 1 GM INJ ONE ×4 (06:51→11:07)
[2017-05-24] MEDS ORDERED: METOCLOPRAMIDE 10 MG INJ ONE (06:51)
[2017-05-24] MEDS ORDERED: MIDAZOLAM 1 MG/ML 2 ML INJ ONE (06:51)
[2017-05-24] MEDS ORDERED: DEXAMETHASONE 4 MG/ML 1 ML INJ ONE (06:52)
[2017-05-24] MEDS ORDERED: VANCOMYCIN 1 GM INJ ONE ×2 (06:52→08:16)
[2017-05-24] MEDS ORDERED: HEPARIN 1000 UNITS/ML 10 ML INJ ONE ×2 (06:53→07:03)
[2017-05-24] MEDS ORDERED: SODIUM CL BACTERIOSTATIC 30 ML INJ ONE (06:53)
[2017-05-24] MEDS ORDERED: POLYMYXIN B 500000 UNIT INJ ONE (06:53)
[2017-05-24] MEDS ORDERED: ALBUMIN HUMAN 5% 250 ML INJ ONE (07:00)
[2017-05-24] MEDS ORDERED: ROCURONIUM 50 MG INJ ONE (07:00)
[2017-05-24] MEDS ORDERED: FENTAnyl 50 MCG/ML VIAL ONE (07:01)
[2017-05-24] MEDS ORDERED: ACETAMINOPHEN 1000MG/100ML IV 100 ML ONE (07:13)
--- NOTE | 2017-05-24 07:19 | HPN ---
Date/Time of Note Date/Time of Note DATE: 05/24/17 TIME: 07:19 Interval H&P Admission Note Pt. seen H&P reviewed: No system changes No changes from H&P on 05/11/17 by Nasim Fleming ERIK N. MD May 24, 2017 07:19
[2017-05-24] MEDS ORDERED: VANCOMYCIN 1 GM (PMX) 250 ML ONE (07:44)
[2017-05-24] MEDS ORDERED: EPHEDrine SULFATE 50 MG/5 ML SYG ONE ×2 (08:12→11:45)
[2017-05-24] MEDS ORDERED: TOBRAMYCIN 1.2 GM POWDER ONE (08:16)
[2017-05-24] MEDS ORDERED: PHENYLephrine (100 MCG/ML) 5ML SYG ONE (09:42)
[2017-05-24] MEDS ORDERED: ONDANSETRON 4 MG INJ IV PRN ×3 (10:00→14:30)
[2017-05-24] MEDS ORDERED: MEPERIDINE 25 MG INJ IV PRN (10:00)
[2017-05-24] MEDS ORDERED: HYDROmorphONE (0.2 MG/ML) 10ML SYG IV PRN ×2 (10:00)
[2017-05-24] MEDS ORDERED: METOCLOPRAMIDE 10 MG INJ IV PRN (10:00)
[2017-05-24] MEDS ORDERED: DIPHENHYDRAMINE 50 MG INJ IV PRN (10:00)
[2017-05-24] MEDS ORDERED: EPHEDrine SULFATE 50 MG/5 ML SYG IV PRN (10:00)
[2017-05-24] MEDS ORDERED: ALBUMIN HUMAN 5% 250 ML IV PRN (10:00)
[2017-05-24] MEDS ORDERED: PROPOFOL 40 ML ONE (10:22)
[2017-05-24] MEDS ORDERED: NACL 0.9% 3 ML SYG IV SCH ×2 (12:00→14:30)
[2017-05-24] MEDS ORDERED: BISACODYL 10 MG SUPP PR PRN (12:00)
[2017-05-24] MEDS ORDERED: MAGNESIUM HYDROXIDE 30ML CUP PO PRN (12:00)
[2017-05-24] MEDS ORDERED: ASPIRIN (EC) 325 MG TAB PO ONE ×2 (12:00→12:20)
[2017-05-24] MEDS ORDERED: DIPHENHYDRAMINE 25 MG CAP PO PRN (12:00)
[2017-05-24] MEDS ORDERED: NA PHOSPHATE/BIPHOS 133 ML ENEMA PR PRN (12:00)
--- NOTE | 2017-05-24 12:20 | PN ---
Date/Time of Note Date/Time of Note DATE: 05/24/17 TIME: 12:18 Assessment/Plan Lines/Catheters IV Catheter Type (from Nrsg): Saline Lock Assessment/Plan Assessment/Plan Stable in PACU, s/p right posterior RACHANA with subtrochanteric femoral shortening osteotomy -continue Ancef x 3 days -pain meds as needed -ASA/SCDs for DVT prophylaxis -posterior hip precautions -OOB with PT - TDWB -check AM labs -monitor drain -d/c mendes in AM XR of the right hip is pending at this time Subjective 24 Hr Interval Summary Stable in PACU. Denies pain. Moving all extremities. Exam/Review of Systems Vital Signs Vitals Vital Signs Date Time Temp Pulse Resp B/P Pulse Ox O2 Delivery O2 Flow Rate FiO2 05/24/17 12:03 98.5 05/24/17 06:40 64 16 159/80 99 Room Air Exam Free Text/Dictation Hemovac: minimal Dressing dry Incision clean, dry, and intact without redness or drainage 5/5 Quadriceps, Tibialis Anterior, EHL, Gastroc, Soleus, Peroneals Normal sensation Palpable DT/PT, CR <2 sec No distal edema AMINA CRONIN PA-C May 24, 2017 12:20
[2017-05-24 12:23] LABS: HEMATOCRIT 30.3 % (42.0-52.0)
[2017-05-24] MEDS: HYDROmorphONE (0.2 MG/ML) 10ML SYG IV PRN ×3 (12:23→13:02)
[2017-05-24] MEDS: CEFAZOLIN 2 GM/50 ML (PMX) 50 ML IVPB SCH ×2 (12:25→20:30)
[2017-05-24] MEDS: traMADol 50 MG TAB PO SCH ×2 (12:36→17:13)
--- NOTE | 2017-05-24 12:42 | OPR ---
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 ESTIMATED BLOOD LOSS: 700 cc INTRAVENOUS FLUIDS: 2700 cc crystalloid + 250 cc of autologous Cell Saver blood SPECIMENS: Femoral head. DRAINS: Hemovac x1. COMPLICATIONS: None. DISPOSITION: The patient tolerated the procedure well and was taken to the recovery room in stable condition. INDICATIONS: The patient is a 61-year-old male who has had worsening pain in both hips with underlying developmental dysplasia who has developed severe osteoarthritis bilaterally. He has failed nonsurgical means of treatment to control his pain including activity modifications, pain medications, and ambulatory assist devices. Despite these measures he has had worsening pain and I feel he will benefit from staged bilateral total hip arthroplasties with femoral subtrochanteric shortening osteotomies. He had left hip replaced in January of this year and has done well and now presents to have the right side replaced. The risks, benefits, and alternatives of the procedure were explained in detail to the patient. I explained the risks of the surgery to include, but not be limited to, bleeding and possible need for blood transfusion; infections; pain; stiffness; neurovascular injury with possible numbness, weakness, and/or paralysis anywhere from the hip down to the toes; fracture, instability, or dislocation; leg length inequality; wear and/or loosening of the prosthesis and possible need for future revision; blood clots and pulmonary embolism; and anesthetic complications such as heart attack, stroke, GI bleed, pneumonia, and/ or . Ample time was allowed for the patient to ask questions, all of which were addressed and answered. The patient understood the risks involved and wished to proceed. Informed consent was signed prior to the procedure. PROCEDURE: The patient's right hip was initialed with a marking pen in the preoperative area to identify the correct operative site. The patient was brought to the operating room and transferred from the [facility] to the operating table where a spinal anesthesia was administered. The patient was then anesthetized and intubated. A Matos catheter was placed. A timeout was performed to confirm that the right side was the correct operative site. The patient was given 1 g of vancomycin and 2 g of Ancef within one hour prior to the procedure. The patient was turned to the lateral decubitus position with the operative side up. An axillary roll was placed under the chest wall. The patient was secured onto the pegboard, and all bony prominences were well padded. The operative hip and lower extremity were prepped and draped in the usual sterile fashion. A posterolateral incision was made centered over the greater trochanter and carried down through subcutaneous tissue and fat with sharp dissection. The iliotibial band and gluteus hamida muscle fibers were bluntly split. The trochanteric bursa was incised. The piriformis and conjoined tendon were identified and taken down off the posterior aspect of the greater trochanter and tagged with #2 FiberWire. The synovial fluid was normal in color and consistency. The femoral head was dislocated posteriorly. It was denuded of cartilage circumferentially. A femoral neck osteotomy was made and the femur retracted anteriorly. The femur was then prepared by reaming up to 13.5 mm with the straight reamers. I then reamed with conical reamers going from an 18 B to an 18 D and then used the triangular Sawyer to an 18 D large. A trial sleeve was placed into the neck and set flush with the neck cut. At this point a transverse osteotomy was made transversely 2 fingerbreadths below the level of the lesser trochanter. The proximal fragment was then able to be mobilized anteriorly and retractors were placed around the acetabulum. The remnants of the labrum and ligamentum teres were excised. I then reamed the acetabulum to the medial wall, and then went up by 2 mm increments until I got a good bite and was down to bleeding subchondral bone. A trial 52 mm cup was impacted and got a good bite. The 52 mm Gription [place] cup was opened and impacted into the acetabulum and sat flush circumferentially, getting a good bite. The trial neutral liner was placed into position. The Aufranc-Morelos guide showed the cup had about 40 to 45 degrees of abduction and 20 degrees of anteversion. Attention was then turned towards the femur. There was some uncoverage superiorly but I felt the majority of the cup had good bony coverage and I burred the superior aspect of the acetabulum so that I could later put bone graft into this area. Attention was turned towards the femur. I placed a trial 18 x 13 with a 36+8 standard neck into the proximal fragment with a 36+3 head and reduced this into the acetabulum. I then pulled on the distal fragment and the proximal fragment and distal fragment overlapped. A second transverse osteotomy was made at the level of overlapping along the distal fragment removing 3.0 cm of bone. A prophylactic cerclage cable was placed in the distal fragment about 1.5 cm distal to the osteotomy. At this point I reamed the distal femur with a 13 and then a 13.5 reamer getting good chatter. At this point the trial stem was reduced into the distal fragment. The head was reduced and the acetabulum the hip was taken through range of motion. There was 110 of flexion. At 90 of flexion and neutral abduction, the hip was stable posteriorly to 80 of internal rotation. In the position of sleep and was stable to 80 of internal rotation as well. The hip came to full extension with no posterior impingement or anterior instability. The Ranawat sign showed a combined forward flexion of 45. The hip was felt to be quite stable. C-arm imaging showed the components to be in good position and the stem traversing the osteotomy well. I felt that the leg lengths and offset were equal. At this point, the trial was dislocated and the trial stem removed. The canal was irrigated and dried. The trial liner was removed. An Mohler hole eliminator was placed. The real liner was opened, impacted into the acetabulum, and sat flush circumferentially. Bone graft from the femoral head was reamed from the head and packed into the superior aspect of the acetabulum covering the superior acetabular component. The canal was irrigated and dried. The real ZTT sleeve was impacted into the femoral neck and set flush with the neck cut. At this point the femur is lined up with the proximal and distal segments held in place with the tibia pointing towards the ceiling such that the linea aspera on both sides of the osteotomy lined up. The real 18 x 13 with a 36+8 neck SROM stem was opened, impacted into the femur through the proximal fragment and through the ZTT sleeve and into the distal femoral canal. The neck sat flush with the neck cut. The trunnion was irrigated and dried. The real femoral head was impacted onto the trunnion and reduced into the acetabulum. The hip had the same range of motion and stability as with the trial. The segment of bone that was removed from the femur was cut in half and placed as a napkin ring around the osteotomy site and secured with a Sonali cable tension to 100 kg of pressure and tightened and the excess cable cut. Final C-arm imaging showed the components to be in good position and the osteotomy to be compressed and leg lengths and offset to be equal. The hip was then irrigated with Betadine saline and then antibiotic saline pulsatile lavage. Stimulan beads with vancomycin and tobramycin were mixed and placed in the deep portion of the wound. The posterior capsule and short external rotators were repaired back to the greater trochanter through drill holes with #2 FiberWire. The quadratus femoris was repaired back to the vastus lateralis with interrupted #1 Vicryl in a figure -of-eight fashion. The sciatic nerve was inspected and noted to be intact, with no undue tension. The soft tissues were infiltrated with a mixture of 150 mg of 0.5% Bupivacaine, 8 mg of Duramorph, 300 mcg of epinephrine, 30 mg of Toradol, 100 mcg of clonidine, 750 mg of cefuroxime and 86 mL of normal saline, followed by an injection of 266 mg of liposomal Bupivacaine. A Hemovac drain was placed in the deep portion of the wound and brought out the anterolateral thigh. The iliotibial band was repaired with interrupted #1 Ethibond in a [id number] fashion. The gluteus hamida muscle fascia was repaired with a running #1 Vicryl. The deep fat layer was irrigated and closed with 2-0 Stratafix, the subcutaneous layer closed with 3-0 Vicryl, and conor on the skin. Skin edges were sealed with Dermabond. The drain was secured with 3-0 nylon. The sponge and needle counts were correct at the end of the case. The wound was covered with an occlusive dressing. The patient was awakened, extubated, and taken to the recovery room in stable condition. An kennel assistant surgeon was necessary in the integral part of the procedure for positioning of the extremity, preparation of the patient before and after the surgical intervention. ARSEN AGUERO MD May 24, 2017 12:41
[2017-05-24 12:57] LABS: CALCIUM 8.2 mg/dl (8.4-10.2); CREATININE 0.63 mg/dl (0.61-1.24); POTASSIUM 3.7 mmol/L (3.5-5.1)
--- NOTE | 2017-05-24 13:34 | RADRPT ---
PROCEDURE: Intraoperative imaging of the right hip. CLINICAL INDICATION: Right hip pain. Intraoperative. TECHNIQUE: 3 images of the right hip were obtained in the operating room with normal x-ray equipme nt. No radiologist was in attendance. COMPARISON: 05/09/2017. FINDINGS: Images demonstrate placement of a right hip total arthroplasty which appears satisfactory. A left h ip total arthroplasty is present as seen previously. There is a Matos catheter in the bladder. The re are degenerative changes of the lower lumbar spine. IMPRESSION: 1. Satisfactory intraoperative imaging of the right hip. RPTAT: QQ .Sigifredo Porter MD, MD Date Time Electronically viewed and signed by .Sigifredo Porter MD, MD on 05/24/2017 13:33 .R/
--- NOTE | 2017-05-24 13:38 | RADRPT ---
PROCEDURE: XR Pelvis. CLINICAL INDICATION: Postop TECHNIQUE: Single AP view of the pelvis. COMPARISON: Right hip films from the same day and 05/09/2017 FINDINGS: Interval post surgical changes with a right total hip arthroplasty. Antibiotic beads are present wi thin the right hip joint. Overlying post surgical conor are present. Air is present within the ri ght hip joint Stable appearance of the left total hip arthroplasty. IMPRESSION: Status post right total hip arthroplasty in good anatomic alignment. Overlying skin conor and anti biotic beads are present. RPTAT: PP .Buster Fan MD, Date Time Electronically viewed and signed by .Buster Fan MD, on 05/24/2017 13:37 .M/
--- NOTE | 2017-05-24 13:38 | RADRPT ---
PROCEDURE: XR Hip. CLINICAL INDICATION: Pain. TECHNIQUE: An AP view of the right hip was performed. COMPARISON: 05/24/2017 right hip FINDINGS: Status post right total hip arthroplasty in good anatomic alignment. Antibiotic beads are present wi thin the right hip joint. Overlying skin conor are present and post surgical drain is present. IMPRESSION: Status post right total hip arthroplasty in good anatomic alignment, RPTAT: RICNH. .Buster Fan MD, MD Date Time Electronically viewed and signed by .Buster Fan MD, on 05/24/2017 13:38 .M/
[2017-05-24] MEDS: LACTATED RINGER'S 1,000 ML IV SCH ×2 (13:54→19:55)
[2017-05-24] MEDS ORDERED: ACETAMINOPHEN 650 MG SUPP PR PRN (14:30)
[2017-05-24] MEDS ORDERED: ACETAMINOPHEN 325 MG TAB PO PRN (14:30)
--- NOTE | 2017-05-24 14:44 | CONS ---
Date/Time of Note Date/Time of Note DATE: 05/24/17 TIME: 14:38 Assessment/Plan Assessment/Plan Chief Complaint/Hosp Course 1. 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 -Status post Right total hip arthroplasty with subtrochanteric femoral shortening osteotomy -Postoperative anticoagulation, weightbearing and pain control per surgery. 2. Anemia, likely dilutional. -We will also obtain an panel and treat accordingly. 3. Hyperglycemia, likely postoperative vs new onset diabetes. -Obtain A1c. Monitor Accu-Cheks and ISS as glycemic control is necessary for faster wound healing. 4. Obesity. -Weight reduction advised. Follow-up with a.m. lipid panel and A1c. DVT prophylaxis, per surgery. Patient is on aspirin 325 mg twice daily PUD prophylaxis: Pepcid. Plan: We will obtain a baseline lipid panel, A1c and TSH level. Will monitor H& H closely. Obtain an panel. Approximately 60 minutes was spent on this consultation. Case discussed with Dr. Albarado. Problems: Consultation Date/Type/Reason Admit Date/Time May 24, 2017 at 05:42 Date of Consultation: May 24, 2017 Type of Consultation: Internal medicine Reason for Consultation Postoperative medical management Referring Provider: ARSEN AGUERO MD Hx of Present Illness This is a 61-year-old male with no significant medical history other than bilateral congenital hip dysplasia, left total hip arthroplasty with subtrochanteric femoral shortening osteotomy in January 2017, chronic pain, who is now electively admitted for Right total hip arthroplasty. Hospitalist consultation was requested for postoperative medical management. Patient is seen postoperatively. Currently, his pain is minimal. Patient denied any chest pain, shortness of breath, palpitation, fever, chills, abdominal pain, nausea, vomiting, dysuria, hematuria or other constitutional symptoms. Labs with hemoglobin 10, hematocrit 30.3, glucose 227. Vital signs temperature 98.5, pulse rate 84, respiratory rate 21, blood pressure 99/55 and oxygen saturation 99% on room air. A 12 point review system was assessed and is negative other than what is mentioned in HPI. Past Medical History See HPI Past Surgical History See HPI Social History Occasional alcohol use. Otherwise no history of smoking, illicit drug use. Smoking Status: Never smoker Exam/Review of Systems Vital Signs Vitals Vital Signs Date Time Temp Pulse Resp B/P Pulse Ox O2 Delivery O2 Flow Rate FiO2 05/24/17 12:55 84 21 99/55 99 Room Air 05/24/17 12:03 98.5 05/24/17 12:00 8.0 Exam General: Well developed,adequately built, not in any acute distress . HEENT: Normocephalic, Atraumatic, No laceration or hematoma; Eyes: PEERL, Conjunctiva clear, Anicteric sclera Neck: Supple without any lymphadenopathy, nontender, no JVD, no carotid bruits, trachea midline, no thyromegaly Cardiac: S1, S2 auscultated, regular rhythm and rate, no mumurs or gallop Pulmonary: Normal respiratory effort. Chest clear to auscultation bilaterally, no adventitious breath sounds GI: Abdomen normal to inspection. Soft, non tender, non- distended, no masses, no rebound tenderness or guarding. Bowel sounds active on all four quadrants Genitourinary: Deferred Extremities: Right hip surgical site intact with negative pressure autotransfuser in place draining sanguinous. No cyanosis, clubbing, or edema. Pulses [2+] bilaterally. Full ROM on all four extremities. No focal weakness appreciated. Neurologic: Alert to person, place, time, and situation. Affect appropriate, intact sensation. Skin: Clean,dry, and intact. No ecchymosis, no rashes, or lesions Results Result Diagram: 05/24/17 1219 05/24/17 1219 Results 24 hrs Laboratory Tests Test 05/24/17 12:19 Hemoglobin 10.0 #L Hematocrit 30.3 #L Sodium Level 138 Potassium Level 3.7 Chloride Level 100 Carbon Dioxide Level 23 Anion Gap 19 H Blood Urea Nitrogen 14 Creatinine 0.63 Glucose Level 227 H Calcium Level 8.2 L Medications Medications Current Medications Miscellaneous Information 1 ea 1 ea NOTE XX ; Start 05/24/17 at 15:30; Stop at 15:29 Lactated Ringer's (Lr) 1,000 ml @ 125 mls/hr Q8H IV Last administered on 13:54; Admin Dose 125 MLS/HR; Start 05/24/17 at 11:55 Tramadol HCl (Ultram) 50 mg Q6 PO Last administered on 05/24/17 12:36; Admin Dose 50 MG; Start 05/24/17 at 12:00; Stop 05/27/17 at 11:59 Hydromorphone HCl 1 mg 1 mg Q3H PRN IV PAIN LEVEL 8-10; Start 05/24/17 at 12:00 Cefazolin Sodium/ Dextrose (Ancef 2 Gm/50 ml (Pmx)) 50 ml @ 100 mls/hr Q8H IVPB Last administered on 05/24/17t 12:25; Admin Dose 100 MLS/HR; Start at 12:00; Stop 05/27/17 at 04:29 Ondansetron HCl (Zofran Inj) 4 mg Q6H PRN IV NAUSEA AND/OR VOMITING; Start at 12:00 Bisacodyl (Dulcolax Supp) 10 mg Q12H PRN PA CONSTIPATION; Start 05/24/17 at 12: 00 Magnesium Hydroxide (Milk Of Mag) 30 ml BID PRN PO CONSTIPATION; Start at 12:00 Sodium Biphosphate/ Sodium Phosphate (Fleet Enema) 133 ml DAILY PRN PA CONSTIPATION; Start 05/24/17 at 12:00 Docusate Sodium (Colace) 100 mg BID PO ; Start 05/24/17 at 21:00 Diphenhydramine HCl (Benadryl) 25 mg Q6H PRN PO PRURITUS; Start 05/24/17 at 12: 00 Acetaminophen/ Hydrocodone Bitart (Brunswick (7.5-325)) 1 tab Q4H PRN PO PAIN LEVEL 1-3; Start 05/24/17 at 12:00 Acetaminophen/ Hydrocodone Bitart (Brunswick (7.5-325)) 2 tab Q4H PRN PO PAIN LEVEL 4-7; Start 05/24/17 at 12:00 Aspirin (Ecotrin) 325 mg BID PO ; Start 05/25/17 at 09:00 Pantoprazole (Protonix Tab) 40 mg BID@06,18 PO ; Start 05/24/17 at 18:00 Ondansetron HCl (Zofran Inj) 4 mg Q6H PRN IV NAUSEA AND/OR VOMITING; Start at 14:30 Acetaminophen (Tylenol Tab) 650 mg Q6H PRN PO PAIN LEVEL 1-3 OR FEVER; Start at 14:30 Acetaminophen (Tylenol Supp) 650 mg Q6H PRN PA PAIN LEVEL 1-3 OR FEVER; Start 05/24/17 at 14:30 DEDE LOVE NP May 24, 2017 14:44
[2017-05-24] MEDS ORDERED: TRANEXAMIC ACID 980 MG in SOD CHLORIDE 0.9% 100 ML IVPB ONE ×2 (15:00→18:00)
[2017-05-24] MEDS ORDERED: GLUCOSE GEL 15 GRAM TUBE PO PRN ×2 (15:00)
[2017-05-24] MEDS ORDERED: GLUCAGON 1 MG INJ IM PRN (15:00)
[2017-05-24] MEDS ORDERED: GLUCOSE GEL 15 GRAM TUBE BUCCAL PRN (15:00)
[2017-05-24] MEDS ORDERED: DEXTROSE 50% 50 ML SYRINGE IV PRN ×2 (15:00)
[2017-05-24] MEDS ORDERED: EXPAREL NOTE (BUPIVICAINE LIPOSOMAL) XX SCH (15:30)
[2017-05-24] MEDS: HYDROmorphONE 1 MG/ML SYG IV PRN (16:10)
[2017-05-24] MEDS: PANTOPRAZOLE (EC) 40 MG TAB PO SCH (17:13)
[2017-05-24] MEDS: INSULIN ASPART [NOVOLOG] 3 ML PEN SC SCH ×2 (17:55→20:34)
[2017-05-24] MEDS: DOCUSATE SODIUM 100 MG CAP PO SCH (20:31)
[2017-05-24] MEDS: HYDROCODONE/APAP (7.5/325) TAB PO PRN (21:51)
[2017-05-25 00:11] VITALS: BP 90/52; RESP 20
[2017-05-25] MEDS: traMADol 50 MG TAB PO SCH ×4 (00:30→18:12)
[2017-05-25] MEDS ORDERED: ACCU-CHEK XX SCH (02:00)
[2017-05-25] MEDS: ACCU-CHEK XX SCH (02:00)
[2017-05-25] MEDS: LACTATED RINGER'S 1,000 ML IV SCH ×3 (02:16→20:29)
[2017-05-25] MEDS: CEFAZOLIN 2 GM/50 ML (PMX) 50 ML IVPB SCH ×3 (04:05→20:22)
[2017-05-25 05:28] LABS: HEMOGLOBIN 7.1 g/dl (14.0-18.0); LYMPHOCYTES # 1.1 10^3/ul (0.8-2.9); LYMPHOCYTES % 10.1 % (15.0-51.0); MEAN CORPUSCULAR HEMOGLOBIN 27.3 pg (29.0-33.0); MEAN CORPUSCULAR HGB CONC 32.3 g/dl (32.0-37.0); MEAN CORPUSCULAR VOLUME 84.6 fl (82.0-101.0); MEAN PLATELET VOLUME 9.8 fl (7.4-10.4); MONOCYTE # 0.9 10^3/ul (0.3-0.9); MONOCYTES % 9.1 % (0.0-11.0); NEUTROPHILS % 80.4 % (39.0-77.0); PLATELET COUNT 173 10^3/UL (140-415); RED CELL DISTRIBUTION WIDTH 15.5 % (11.5-14.5); WHITE BLOOD COUNT 10.4 10^3/ul (4.8-10.8)
[2017-05-25 06:08] LABS: ALBUMIN 2.6 g/dl (3.3-4.9); ALBUMIN/GLOBULIN RATIO 1.13; BILIRUBIN,INDIRECT 0.1 mg/dl (0-1.1); BILIRUBIN,TOTAL 0.1 mg/dl (0.2-1.3); CALCIUM 8.5 mg/dl (8.4-10.2); CHOL/HDL RATIO 3.3 RATIO; CREATININE 0.76 mg/dl (0.61-1.24); MAGNESIUM 1.9 mg/dl (1.7-2.5); PHOSPHORUS 3.8 mg/dl (2.5-4.9); POTASSIUM 5.1 mmol/L (3.5-5.1); TOTAL PROTEIN 4.9 g/dl (6.1-8.1)
[2017-05-25 06:25] LABS: ADD UMIC NO; UR ASCORBIC ACID NEGATIVE (NEGATIVE); UR BILIRUBIN (Dip) NEGATIVE (NEGATIVE); UR BLOOD (Dip) NEGATIVE (NEGATIVE); UR CLARITY CLEAR (CLEAR); UR COLOR COLORLESS (YELLOW); UR GLUCOSE (Dip) 1+ mg/dL (NEGATIVE); UR KETONES (Dip) NEGATIVE (NEGATIVE); UR LEUKOCYTE ESTERASE (Dip) NEGATIVE Leu/ul (NEGATIVE); UR NITRITE (Dip) NEGATIVE (NEGATIVE); UR SPECIFIC GRAVITY (Dip) 1.004 (1.003-1.030); UR TOTAL PROTEIN (Dip) NEGATIVE (NEGATIVE); UR UROBILINOGEN (Dip) NEGATIVE (NEGATIVE)
[2017-05-25] MEDS: PANTOPRAZOLE (EC) 40 MG TAB PO SCH ×2 (06:29→18:12)
[2017-05-25 06:32] LABS: THYROID STIMULATING HORMONE 2.75 MIU/L (0.465-4.680)
[2017-05-25 06:38] LABS: CALCIUM 8.7 mg/dl (8.4-10.2); CREATININE 0.74 mg/dl (0.61-1.24); POTASSIUM 5.2 mmol/L (3.5-5.1)
[2017-05-25 06:55] LABS: IRON 24 ug/dl (35-150)
[2017-05-25 07:04] LABS: TOTAL IRON BINDING CAPACITY 286 ug/dl (241-421)
--- NOTE | 2017-05-25 07:28 | PDOCDIS ---
Discharge Instructions DIAGNOSIS Discharge Diagnosis s/p posterior RACHANA, subtrochanteric shortening osteotomy CONDITION Patient Condition: Good HOME CARE INSTRUCTIONS: Diet Instructions: Regular ACTIVITY: Activity Restrictions: Slowly Increase Activity Rest between Activity Avoid heavy lifting No Sexual Activity Do not operate Machinery Do not operate Power Tool Avoid Heavy Housework Keep Limb Elevated FOLLOW UP/APPOINTMENTS Follow-up Plan follow up in the office on 06/03/17 OTHER ORDERS: Other Orders: S/P Posterior RACHANA Physical Therapy: Three times per week at home x 2 weeks Daily in Rehab/SNF WB STATUS: Touch down weight bearing Strengthening exercises for both upper and un-operated lower extremities. 1. Gait training with front wheeled walker 2. Wide base gait, no pivot turns. 3. Abductor strengthening. 4. Quadriceps and hamstring strengthening. 5. May switch to cane in contra lateral hand 6 weeks after surgery. 6. Physical Therapy can open case if nursing is not available. 7. Ice Packs while at rest to surgical wound for 20 minutes, 3 times/day. 8. Patient requires mobile SCDs to reduce risk of developing DVT following RACHANA. Patient will use the mobile SCDs for 30 days postoperatively. Hip Precautions: no flexion beyond 90 degrees, no adduction, no internal rotation. Bathing assistance by home health aide twice weekly if Medicare patient. Occupational Therapy: Evaluation for assistive devices and ADL training. Wound Care: Keep incision dry & covered with Tegaderm until first visit with Dr. Weiss Anticoagulation Orders: Enteric Coated Aspirin 325 mg po bid x 6 weeks from date of surgery Follow-up:Call for an appointment with Dr. Weiss in 1 week after discharged from hospital at DME Orders: TSAN, 3-in-1 Commode, Mobile SCDs AMINA CRONIN PA-C May 25, 2017 07:27
[2017-05-25] MEDS ORDERED: PANT40TA4 PO (07:29)
[2017-05-25] MEDS ORDERED: ASPI325T32 PO (07:29)
[2017-05-25] MEDS ORDERED: HYDR-3605 PO (07:29)
[2017-05-25] MEDS ORDERED: TRAM50TA2 PO (07:29)
[2017-05-25 07:55] LABS: HEMATOCRIT 22.5 % (42.0-52.0); HEMOGLOBIN 7.2 g/dl (14.0-18.0)
[2017-05-25 08:18] VITALS: BP 93/50; RESP 18
--- NOTE | 2017-05-25 08:48 | PN ---
Date/Time of Note Date/Time of Note DATE: 05/25/17 TIME: 08:46 Assessment/Plan Lines/Catheters IV Catheter Type (from Nrsg): Peripheral IV Matos in Place (from Nrsg): Yes Assessment/Plan Assessment/Plan POD #1, s/p right RACHANA, subtroch fem shorterning osteotomy -continue Ancef -pain meds as needed -OOB with PT -ASA/SCDs -monitor drain -transfuse 2 units PRBCs -check AM labs -posterior hip precautions -d/c planning for home Subjective 24 Hr Interval Summary No acute overnight events. Large drain output. H&H low today and having some dizzy spells, therefore will require transfusion of 2 units PRBCs. Exam/Review of Systems Vital Signs Vitals Vital Signs Date Time Temp Pulse Resp B/P Pulse Ox O2 Delivery O2 Flow Rate FiO2 05/25/17 08:18 98.2 73 18 93/50 98 05/24/17 15:55 Room Air 05/24/17 12:00 8.0 Intake and Output 05/24/17 05/24/17 05/25/17 14:59 22:59 06:59 Intake Total 2950 ml 825 ml 1880 ml Output Total 1750 ml 850 ml 3420 ml Balance 1200 ml -25 ml -1540 ml Exam Free Text/Dictation Hemovac: 1200cc Dressing dry Incision clean, dry, and intact without redness or drainage 5/5 Quadriceps, Tibialis Anterior, EHL, Gastroc, Soleus, Peroneals Normal sensation Palpable DT/PT, CR <2 sec No distal edema Results Result Diagram: 05/25/17 0648 05/25/17 0423 AMINA CRONIN PA-C May 25, 2017 08:48
[2017-05-25] MEDS: DOCUSATE SODIUM 100 MG CAP PO SCH ×2 (09:01→20:22)
[2017-05-25] MEDS: HYDROCODONE/APAP (7.5/325) TAB PO PRN ×3 (09:01→22:57)
[2017-05-25] MEDS: ASPIRIN (EC) 325 MG TAB PO SCH ×2 (09:01→20:22)
[2017-05-25] MEDS: INSULIN ASPART [NOVOLOG] 3 ML PEN SC SCH ×4 (09:02→20:31)
--- NOTE | 2017-05-25 13:49 | PN ---
Date/Time of Note Date/Time of Note DATE: 05/25/17 TIME: 13:45 Assessment/Plan VTE Prophylaxis VTE Prophylaxis Intervention: SCD's Lines/Catheters IV Catheter Type (from Nrsg): Peripheral IV Urinary Cath still in place: Yes Reason Cath still needed: other (indicate) Assessment/Plan Assessment/Plan 1. S/p Right total hip replacement, follow up woth ortho 2. Anemia, follow up with H/H DVT prophylaxis, SCD's Subjective 24 Hr Interval Summary Free Text/Dictation pain is controlled Exam/Review of Systems Vital Signs Vitals Vital Signs Date Time Temp Pulse Resp B/P Pulse Ox O2 Delivery O2 Flow Rate FiO2 05/25/17 08:18 98.2 73 18 93/50 98 05/24/17 15:55 Room Air 05/24/17 12:00 8.0 Intake and Output 05/24/17 05/24/17 05/25/17 15:00 23:00 07:00 Intake Total 2950 ml 825 ml 1880 ml Output Total 1750 ml 850 ml 3420 ml Balance 1200 ml -25 ml -1540 ml Exam Constitutional: alert, oriented, well developed Psych: nl mood/affect, no complaints Head: atraumatic, normocephalic Eyes: EOMI, PERRL, nl conjunctiva, nl lids ENMT: nl external ears & nose, nl lips & teeth, nl nasal mucosa & septum Neck: non-tender, supple Respiratory: clear to auscultation, normal air movement, No congested cough, No crackles/rales, No diminished breath sounds, No intercostal retraction, No labored breathing, No other, No respirations, No tactile fremitus, No wheezing Cardiovascular: nl pulses, regular rate and rhythm, No S3, No S4, No bruits, No diastolic murmur, No edema, No gallop, No irregular rhythm, No jugular venous distention (JVD), No murmurs/extra sounds, No other, No rub, No systolic murmur Gastrointestinal: nl liver, spleen, non-tender, soft, No ascites, No bowel sounds, No distended, No firm, No hepatomegaly, No mass , No other, No rebound or guarding, No splenomegaly, No surgical scars, No tender Extremities: other (right hip no hematoma) 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, nl mental status, nl speech, nl strength Results Result Diagram: 05/25/17 0648 05/25/17 0423 Results 24 hrs Laboratory Tests Test 05/24/17 17:19 05/24/17 20:33 05/25/17 04:01 05/25/17 04:23 Bedside Glucose 222 H 167 Urine Color COLORLESS Urine Clarity CLEAR Urine pH 6.0 Urine Specific [place] 1.004 Urine Ketones NEGATIVE Urine Nitrite NEGATIVE Urine Bilirubin NEGATIVE Urine Urobilinogen NEGATIVE Urine Leukocyte Esterase NEGATIVE Urine Hemoglobin NEGATIVE Urine Glucose 1+ H Urine Total Protein NEGATIVE Sodium Level 138 Potassium Level 5.1 Chloride Level 100 Carbon Dioxide Level 29 Anion Gap 14 Blood Urea Nitrogen 13 Creatinine 0.76 Glucose Level 113 Hemoglobin A1c 5.8 Calcium Level 8.5 Phosphorus Level 3.8 Magnesium Level 1.9 Iron Level 24 L Total Iron Binding Capacity 286 Percent Iron Saturation 8 L Total Bilirubin 0.1 L Direct Bilirubin 0.00 Indirect Bilirubin 0.1 Aspartate Amino Transf (AST/SGOT) 67 H Alanine Aminotransferase (ALT/SGPT) 39 Alkaline Phosphatase 54 Total Protein 4.9 L Albumin 2.6 L Globulin 2.30 Albumin/Globulin Ratio 1.13 Triglycerides Level 108 Cholesterol Level 99 L LDL Cholesterol, Calculated 47 HDL Cholesterol 30 Cholesterol/HDL Ratio 3.3 Thyroid Stimulating Hormone (TSH) 2.750 Test 05/25/17 04:25 05/25/17 06:48 05/25/17 08:49 05/25/17 12:47 White Blood Count 10.4 Red Blood Count 2.60 L Hemoglobin 7.1 #L 7.2 L Hematocrit 22.0 #L 22.5 L Mean Corpuscular Volume 84.6 Mean Corpuscular Hemoglobin 27.3 L Mean Corpuscular Hemoglobin Concent 32.3 Red Cell Distribution Width 15.5 H Platelet Count 173 Mean Platelet Volume 9.8 Neutrophils % 80.4 H Lymphocytes % 10.1 L Monocytes % 9.1 Eosinophils % 0.0 Basophils % 0.0 Nucleated Red Blood Cells % 0.0 Neutrophils # (Manual) 8 H Lymphocytes # 1.1 Monocytes # 0.9 Eosinophils # 0.0 Basophils # 0.0 Nucleated Red Blood Cells # 0.0 Ferritin 29.5 Bedside Glucose 115 114 Medications Medications Current Medications Miscellaneous Information 1 ea 1 ea NOTE XX ; Start 05/24/17 at 15:30; Stop at 15:29 Lactated Ringer's (Lr) 1,000 ml @ 125 mls/hr Q8H IV Last administered on 02:16; Admin Dose 125 MLS/HR; Start 05/24/17 at 11:55 Tramadol HCl (Ultram) 50 mg Q6 PO Last administered on 05/25/17 12:35; Admin Dose 50 MG; Start 05/24/17 at 12:00; Stop 05/27/17 at 11:59 Hydromorphone HCl 1 mg 1 mg Q3H PRN IV PAIN LEVEL 8-10 Last administered on 16:10; Admin Dose 1 MG; Start 05/24/17 at 12:00 Cefazolin Sodium/ Dextrose (Ancef 2 Gm/50 ml (Pmx)) 50 ml @ 100 mls/hr Q8H IVPB Last administered on 05/25/17 12:36; Admin Dose 100 MLS/HR; Start at 12:00; Stop 05/27/17 at 04:29 Ondansetron HCl (Zofran Inj) 4 mg Q6H PRN IV NAUSEA AND/OR VOMITING; Start at 12:00 Bisacodyl (Dulcolax Supp) 10 mg Q12H PRN [place] CONSTIPATION; Start 05/24/17 at 12: 00 Magnesium Hydroxide (Milk Of Mag) 30 ml BID PRN PO CONSTIPATION; Start at 12:00 Sodium Biphosphate/ Sodium Phosphate (Fleet Enema) 133 ml DAILY PRN [place] CONSTIPATION; Start 05/24/17 at 12:00 Docusate Sodium (Colace) 100 mg BID PO Last administered on 05/25/17 09:01; Admin Dose 100 MG; Start 05/24/17 at 21:00 Diphenhydramine HCl (Benadryl) 25 mg Q6H PRN PO PRURITUS; Start 05/24/17 at 12: 00 Acetaminophen/ Hydrocodone Bitart ([place] (7.5-325)) 1 tab Q4H PRN PO PAIN LEVEL 1-3 Last administered on 05/25/17 09:01; Admin Dose 1 TAB; Start at 12:00 Acetaminophen/ Hydrocodone Bitart ([place] (7.5-325)) 2 tab Q4H PRN PO PAIN LEVEL 4-7; Start 05/24/17 at 12:00 Aspirin (Ecotrin) 325 mg BID PO Last administered on 05/25/17 09:01; Admin Dose 325 MG; Start 05/25/17 at 09:00 Pantoprazole (Protonix Tab) 40 mg BID@,18 PO Last administered on 05/25/17 06:29; Admin Dose 40 MG; Start 05/24/17 at 18:00 Ondansetron HCl (Zofran Inj) 4 mg Q6H PRN IV NAUSEA AND/OR VOMITING; Start at 14:30 Acetaminophen (Tylenol Tab) 650 mg Q6H PRN PO PAIN LEVEL 1-3 OR FEVER; Start at 14:30 Acetaminophen (Tylenol Supp) 650 mg Q6H PRN [place] PAIN LEVEL 1-3 OR FEVER; Start 05/24/17 at 14:30 Diagnostic Test (Pha) (Accu-Chek) 1 ea 02 XX ; Start 05/25/17 at 02:00 Miscellaneous Information 1 ea NOTE XX ; Start 05/24/17 at 15:00 Glucose (Glutose) 15 gm Q15M PRN PO DECREASED GLUCOSE; Start 05/24/17 at 15:00 Glucose (Glutose) 22.5 gm Q15M PRN PO DECREASED GLUCOSE; Start 05/24/17 at 15: 00 Dextrose (D50w Syringe) 25 ml Q15M PRN IV DECREASED GLUCOSE; Start 05/24/17 at 15:00 Dextrose (D50w Syringe) 50 ml Q15M PRN IV DECREASED GLUCOSE; Start 05/24/17 at 15:00 Glucagon (Glucagen) 1 mg Q15M PRN IM DECREASED GLUCOSE; Start 05/24/17 at 15:00 Glucose (Glutose) 15 gm Q15M PRN BUCCAL DECREASED GLUCOSE; Start 05/24/17 at 15 :00 YEISON JENKINS MD May 25, 2017 13:48
[2017-05-25 14:47] VITALS: BP 111/56; RESP 18
[2017-05-25 19:15] VITALS: BP 116/55; RESP 18
[2017-05-25] MEDS: HYDROmorphONE 1 MG/ML SYG IV PRN (20:21)
[2017-05-26] MEDS: traMADol 50 MG TAB PO SCH ×4 (00:57→17:54)
[2017-05-26] MEDS: ACCU-CHEK XX SCH (02:00)
[2017-05-26 02:05] VITALS: BP 105/57; RESP 18
[2017-05-26] MEDS: LACTATED RINGER'S 1,000 ML IV SCH ×3 (03:55→18:27)
[2017-05-26] MEDS: HYDROCODONE/APAP (7.5/325) TAB PO PRN ×3 (04:06→19:39)
[2017-05-26] MEDS: CEFAZOLIN 2 GM/50 ML (PMX) 50 ML IVPB SCH ×3 (04:07→19:39)
[2017-05-26] MEDS: HYDROmorphONE 1 MG/ML SYG IV PRN ×5 (05:05→21:27)
[2017-05-26] MEDS: PANTOPRAZOLE (EC) 40 MG TAB PO SCH ×2 (05:05→17:54)
[2017-05-26 06:09] LABS: HEMATOCRIT 25.8 % (42.0-52.0); HEMOGLOBIN 8.8 g/dl (14.0-18.0)
[2017-05-26 06:34] LABS: CALCIUM 8.7 mg/dl (8.4-10.2); CREATININE 0.81 mg/dl (0.61-1.24); POTASSIUM 4.5 mmol/L (3.5-5.1)
[2017-05-26 07:44] VITALS: BP 95/55; RESP 16
[2017-05-26] MEDS: INSULIN ASPART [NOVOLOG] 3 ML PEN SC SCH ×4 (07:50→21:00)
[2017-05-26] MEDS: DOCUSATE SODIUM 100 MG CAP PO SCH ×2 (08:47→20:54)
[2017-05-26] MEDS: ASPIRIN (EC) 325 MG TAB PO SCH ×2 (08:47→20:55)
--- NOTE | 2017-05-26 13:02 | PN ---
Date/Time of Note Date/Time of Note DATE: 05/26/17 TIME: 12:59 Assessment/Plan VTE Prophylaxis VTE Prophylaxis Intervention: SCD's, other Lines/Catheters IV Catheter Type (from Nrsg): Peripheral IV Urinary Cath still in place: No Assessment/Plan Assessment/Plan 1. S/p Right total hip replacement, follow up with ortho and PT 2. Anemia, s/p 1 unit PRBC 05/25/2017, iron supplement, follow up with H/H 3. DVT prophylaxis, ASA Subjective 24 Hr Interval Summary Free Text/Dictation pain is controlled. hemo vac is out today Exam/Review of Systems Vital Signs Vitals Vital Signs Date Time Temp Pulse Resp B/P Pulse Ox O2 Delivery O2 Flow Rate FiO2 05/26/17 07:44 98.3 70 16 95/55 95 05/24/17 15:55 Room Air 05/24/17 12:00 8.0 Intake and Output 05/25/17 05/25/17 05/26/17 15:00 23:00 07:00 Intake Total 650 ml 3780 ml 1850 ml Output Total 1770 ml 2250 ml Balance 650 ml 2010 ml -400 ml Exam Constitutional: alert, oriented, well developed Psych: nl mood/affect, no complaints Head: atraumatic, normocephalic Eyes: EOMI, PERRL, nl conjunctiva ENMT: nl external ears & nose, nl lips & teeth, nl nasal mucosa & septum Neck: non-tender, supple Respiratory: clear to auscultation, normal air movement, No congested cough, No crackles/rales, No diminished breath sounds, No intercostal retraction, No labored breathing, No other, No respirations, No tactile fremitus, No wheezing Cardiovascular: nl pulses, regular rate and rhythm, No S3, No S4, No bruits, No diastolic murmur, No edema, No gallop, No irregular rhythm, No jugular venous distention (JVD), No murmurs/extra sounds, No other, No rub, No systolic murmur Gastrointestinal: nl liver, spleen, non-tender, soft, No ascites, No bowel sounds, No distended, No firm, No hepatomegaly, No mass , No other, No rebound or guarding, No splenomegaly, No surgical scars, No tender Extremities: normal pulses, other (right hipo surgery) 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, nl mental status, nl speech, nl strength Lymph: nl lymph nodes Results Result Diagram: 05/26/17 0459 05/26/17 0459 Results 24 hrs Laboratory Tests Test 05/25/17 17:51 05/25/17 20:31 05/26/17 04:59 05/26/17 07:17 Bedside Glucose 104 114 Hemoglobin 8.8 #L Hematocrit 25.8 L Sodium Level 137 Potassium Level 4.5 Chloride Level 97 Carbon Dioxide Level 33 H Anion Gap 12 Blood Urea Nitrogen 11 Creatinine 0.81 Glucose Level 102 Calcium Level 8.7 Lab Scanned Report BLOOD TRANSFUSION Test 05/26/17 08:41 Bedside Glucose 107 Medications Medications Current Medications Miscellaneous Information 1 ea 1 ea NOTE XX ; Start 05/24/17 at 15:30; Stop at 15:29 Lactated Ringer's (Lr) 1,000 ml @ 125 mls/hr Q8H IV Last administered on 20:29; Admin Dose 125 MLS/HR; Start 05/24/17 at 11:55 Tramadol HCl (Ultram) 50 mg Q6 PO Last administered on 05/26/17 11:42; Admin Dose 50 MG; Start 05/24/17 at 12:00; Stop 05/27/17 at 11:59 Hydromorphone HCl 1 mg 1 mg Q3H PRN IV PAIN LEVEL 8-10 Last administered on 08:47; Admin Dose 1 MG; Start 05/24/17 at 12:00 Cefazolin Sodium/ Dextrose (Ancef 2 Gm/50 ml (Pmx)) 50 ml @ 100 mls/hr Q8H IVPB Last administered on 05/26/17 11:42; Admin Dose 100 MLS/HR; Start at 12:00; Stop 05/27/17 at 04:29 Ondansetron HCl (Zofran Inj) 4 mg Q6H PRN IV NAUSEA AND/OR VOMITING; Start at 12:00 Bisacodyl (Dulcolax Supp) 10 mg Q12H PRN [place] CONSTIPATION; Start 05/24/17 at 12: 00 Magnesium Hydroxide (Milk Of Mag) 30 ml BID PRN PO CONSTIPATION; Start at 12:00 Sodium Biphosphate/ Sodium Phosphate (Fleet Enema) 133 ml DAILY PRN [place] CONSTIPATION; Start 05/24/17 at 12:00 Docusate Sodium (Colace) 100 mg BID PO Last administered on 05/26/17 08:47; Admin Dose 100 MG; Start 05/24/17 at 21:00 Diphenhydramine HCl (Benadryl) 25 mg Q6H PRN PO PRURITUS; Start 05/24/17 at 12: 00 Acetaminophen/ Hydrocodone Bitart ([place] (7.5-325)) 1 tab Q4H PRN PO PAIN LEVEL 1-3 Last administered on 05/26/17 10:51; Admin Dose 1 TAB; Start at 12:00 Acetaminophen/ Hydrocodone Bitart ([place] (7.5-325)) 2 tab Q4H PRN PO PAIN LEVEL 4-7 Last administered on 05/26/17 04:06; Admin Dose 2 TAB; Start at 12:00 Aspirin (Ecotrin) 325 mg BID PO Last administered on 05/26/17 08:47; Admin Dose 325 MG; Start 05/25/17 at 09:00 Pantoprazole (Protonix Tab) 40 mg BID@06,18 PO Last administered on 05/26/17 05:05; Admin Dose 40 MG; Start 05/24/17 at 18:00 Ondansetron HCl (Zofran Inj) 4 mg Q6H PRN IV NAUSEA AND/OR VOMITING; Start at 14:30 Acetaminophen (Tylenol Tab) 650 mg Q6H PRN PO PAIN LEVEL 1-3 OR FEVER; Start at 14:30 Acetaminophen (Tylenol Supp) 650 mg Q6H PRN [place] PAIN LEVEL 1-3 OR FEVER; Start 05/24/17 at 14:30 Diagnostic Test (Pha) (Accu-Chek) 1 ea 02 XX ; Start 05/25/17 at 02:00 Miscellaneous Information 1 ea NOTE XX ; Start 05/24/17 at 15:00 Glucose (Glutose) 15 gm Q15M PRN PO DECREASED GLUCOSE; Start 05/24/17 at 15:00 Glucose (Glutose) 22.5 gm Q15M PRN PO DECREASED GLUCOSE; Start 05/24/17 at 15: 00 Dextrose (D50w Syringe) 25 ml Q15M PRN IV DECREASED GLUCOSE; Start 05/24/17 at 15:00 Dextrose (D50w Syringe) 50 ml Q15M PRN IV DECREASED GLUCOSE; Start 05/24/17 at 15:00 Glucagon (Glucagen) 1 mg Q15M PRN IM DECREASED GLUCOSE; Start 05/24/17 at 15:00 Glucose (Glutose) 15 gm Q15M PRN BUCCAL DECREASED GLUCOSE; Start 05/24/17 at 15 :00 YEISON JENKINS MD May 26, 2017 13:01
--- NOTE | 2017-05-26 13:52 | PN ---
Date/Time of Note Date/Time of Note DATE: 05/26/17 TIME: 13:51 Assessment/Plan Lines/Catheters IV Catheter Type (from Nrsg): Peripheral IV Matos in Place (from Nrsg): No Assessment/Plan Assessment/Plan Stable, POD #2, s/p right RACHANA -continue Ancef -pain meds as needed -ASA/SCDs -OOB with PT -posterior hip precautions -check AM labs -d/c planning for home Subjective 24 Hr Interval Summary No acute overnight events. Having mild pain but doing well overall. VSS, afebrile. H&H and BP improved at transfusion. Exam/Review of Systems Vital Signs Vitals Vital Signs Date Time Temp Pulse Resp B/P Pulse Ox O2 Delivery O2 Flow Rate FiO2 05/26/17 07:44 98.3 70 16 95/55 95 05/24/17 15:55 Room Air 05/24/17 12:00 8.0 Intake and Output 05/25/17 05/25/17 05/26/17 15:00 23:00 07:00 Intake Total 650 ml 3780 ml 1850 ml Output Total 1770 ml 2250 ml Balance 650 ml 2010 ml -400 ml Exam Free Text/Dictation Hemovac: 20cc Dressing dry Incision clean, dry, and intact without redness or drainage 5/5 Quadriceps, Tibialis Anterior, EHL, Gastroc, Soleus, Peroneals Normal sensation Palpable DT/PT, CR <2 sec No distal edema Results Result Diagram: 05/26/17 0459 05/26/17 0459 AMINA CRONIN PA-C May 26, 2017 13:52
[2017-05-26] MEDS: FERROUS SULFATE (EC) 325 MG TAB PO SCH ×2 (13:55→20:55)
[2017-05-26 14:00] VITALS: BP 95/50; RESP 18
--- NOTE | 2017-05-26 14:17 | PN ---
Date/Time of Note Date/Time of Note DATE: 05/25/17 TIME: 14:59 Anesthesia Note; A 62 tear male s/p hip replacement under [place] and spinal. pOD#1 pt bis doing fine has mild headache which started before surgery. no N/V pain is controlled. no itching, back pain. care per surgery Assessment/Plan VTE Prophylaxis VTE Prophylaxis Intervention: ambulation Lines/Catheters IV Catheter Type (from Nrs): Peripheral IV Urinary Cath still in place: No Exam/Review of Systems Vital Signs Vitals Vital Signs Date Time Temp Pulse Resp B/P Pulse Ox O2 Delivery O2 Flow Rate FiO2 05/26/17 07:44 98.3 70 16 95/55 95 05/24/17 15:55 Room Air 05/24/17 12:00 8.0 Intake and Output 05/25/17 05/25/17 05/26/17 15:00 23:00 07:00 Intake Total 650 ml 3780 ml 1850 ml Output Total 1770 ml 2250 ml Balance 650 ml 2010 ml -400 ml Results Result Diagram: 05/26/17 0459 05/26/17 0459 Results 24 hrs Laboratory Tests Test 05/25/17 17:51 05/25/17 20:31 05/26/17 04:59 05/26/17 07:17 Bedside Glucose 104 114 Hemoglobin 8.8 #L Hematocrit 25.8 L Sodium Level 137 Potassium Level 4.5 Chloride Level 97 Carbon Dioxide Level 33 H Anion Gap 12 Blood Urea Nitrogen 11 Creatinine 0.81 Glucose Level 102 Calcium Level 8.7 Lab Scanned Report BLOOD TRANSFUSION Test 05/26/17 08:41 05/26/17 12:57 Bedside Glucose 107 122 Medications Medications Current Medications Miscellaneous Information 1 ea 1 ea NOTE XX ; Start 05/24/17 at 15:30; Stop at 15:29 Lactated Ringer's (Lr) 1,000 ml @ 125 mls/hr Q8H IV Last administered on 20:29; Admin Dose 125 MLS/HR; Start 05/24/17 at 11:55 Tramadol HCl (Ultram) 50 mg Q6 PO Last administered on 05/26/17 11:42; Admin Dose 50 MG; Start 05/24/17 at 12:00; Stop 05/27/17 at 11:59 Hydromorphone HCl 1 mg 1 mg Q3H PRN IV PAIN LEVEL 8-10 Last administered on 13:55; Admin Dose 1 MG; Start 05/24/17 at 12:00 Cefazolin Sodium/ Dextrose (Ancef 2 Gm/50 ml (Pmx)) 50 ml @ 100 mls/hr Q8H IVPB Last administered on 05/26/17 11:42; Admin Dose 100 MLS/HR; Start at 12:00; Stop 05/27/17 at 04:29 Ondansetron HCl (Zofran Inj) 4 mg Q6H PRN IV NAUSEA AND/OR VOMITING; Start at 12:00 Bisacodyl (Dulcolax Supp) 10 mg Q12H PRN [place] CONSTIPATION; Start 05/24/17 at 12: 00 Magnesium Hydroxide (Milk Of Mag) 30 ml BID PRN PO CONSTIPATION; Start at 12:00 Sodium Biphosphate/ Sodium Phosphate (Fleet Enema) 133 ml DAILY PRN [place] CONSTIPATION; Start 05/24/17 at 12:00 Docusate Sodium (Colace) 100 mg BID PO Last administered on 05/26/17 08:47; Admin Dose 100 MG; Start 05/24/17 at 21:00 Diphenhydramine HCl (Benadryl) 25 mg Q6H PRN PO PRURITUS; Start 05/24/17 at 12: 00 Acetaminophen/ Hydrocodone Bitart ([place] (7.5-325)) 1 tab Q4H PRN PO PAIN LEVEL 1-3 Last administered on 05/26/17 10:51; Admin Dose 1 TAB; Start at 12:00 Acetaminophen/ Hydrocodone Bitart ([place] (7.5-325)) 2 tab Q4H PRN PO PAIN LEVEL 4-7 Last administered on 05/26/17 04:06; Admin Dose 2 TAB; Start at 12:00 Aspirin (Ecotrin) 325 mg BID PO Last administered on 05/26/17 08:47; Admin Dose 325 MG; Start 05/25/17 at 09:00 Pantoprazole (Protonix Tab) 40 mg BID@06,18 PO Last administered on 05/26/17 05:05; Admin Dose 40 MG; Start 05/24/17 at 18:00 Ondansetron HCl (Zofran Inj) 4 mg Q6H PRN IV NAUSEA AND/OR VOMITING; Start at 14:30 Acetaminophen (Tylenol Tab) 650 mg Q6H PRN PO PAIN LEVEL 1-3 OR FEVER; Start at 14:30 Acetaminophen (Tylenol Supp) 650 mg Q6H PRN [place] PAIN LEVEL 1-3 OR FEVER; Start 05/24/17 at 14:30 Diagnostic Test (Pha) (Accu-Chek) 1 ea 02 XX ; Start 05/25/17 at 02:00 Miscellaneous Information 1 ea NOTE XX ; Start 05/24/17 at 15:00 Glucose (Glutose) 15 gm Q15M PRN PO DECREASED GLUCOSE; Start 05/24/17 at 15:00 Glucose (Glutose) 22.5 gm Q15M PRN PO DECREASED GLUCOSE; Start 05/24/17 at 15: 00 Dextrose (D50w Syringe) 25 ml Q15M PRN IV DECREASED GLUCOSE; Start 05/24/17 at 15:00 Dextrose (D50w Syringe) 50 ml Q15M PRN IV DECREASED GLUCOSE; Start 05/24/17 at 15:00 Glucagon (Glucagen) 1 mg Q15M PRN IM DECREASED GLUCOSE; Start 05/24/17 at 15:00 Glucose (Glutose) 15 gm Q15M PRN BUCCAL DECREASED GLUCOSE; Start 05/24/17 at 15 :00 Ferrous Sulfate (Ferrous Sulfate (Ec)) 325 mg BID PO Last administered on t 13:55; Admin Dose 325 MG; Start 05/26/17 at 13:00 JOANA TODD MD May 26, 2017 14:17
[2017-05-26 21:19] VITALS: BP 118/63; RESP 20
[2017-05-27] MEDS: traMADol 50 MG TAB PO SCH ×2 (00:15→06:11)
[2017-05-27] MEDS: ACCU-CHEK XX SCH ×2 (02:00→21:56)
[2017-05-27] MEDS: HYDROmorphONE 1 MG/ML SYG IV PRN (02:20)
[2017-05-27 03:15] VITALS: BP 111/62; RESP 20
[2017-05-27] MEDS: LACTATED RINGER'S 1,000 ML IV SCH ×3 (03:55→19:55)
[2017-05-27] MEDS: CEFAZOLIN 2 GM/50 ML (PMX) 50 ML IVPB SCH (04:30)
[2017-05-27] MEDS: HYDROCODONE/APAP (7.5/325) TAB PO PRN ×4 (04:31→20:40)
[2017-05-27 05:21] LABS: HEMATOCRIT 26.5 % (42.0-52.0); HEMOGLOBIN 8.9 g/dl (14.0-18.0)
[2017-05-27 05:40] LABS: CALCIUM 8.7 mg/dl (8.4-10.2); CREATININE 0.77 mg/dl (0.61-1.24); POTASSIUM 4.7 mmol/L (3.5-5.1)
[2017-05-27] MEDS: PANTOPRAZOLE (EC) 40 MG TAB PO SCH ×2 (06:11→18:02)
[2017-05-27 07:45] VITALS: BP 106/55; RESP 19
[2017-05-27] MEDS: INSULIN ASPART [NOVOLOG] 3 ML PEN SC SCH ×5 (07:50→21:00)
[2017-05-27] MEDS: DOCUSATE SODIUM 100 MG CAP PO SCH ×2 (08:49→20:40)
[2017-05-27] MEDS: FERROUS SULFATE (EC) 325 MG TAB PO SCH ×2 (08:49→20:40)
[2017-05-27] MEDS: ASPIRIN (EC) 325 MG TAB PO SCH ×2 (08:49→20:40)
--- NOTE | 2017-05-27 09:18 | PN ---
Date/Time of Note Date/Time of Note DATE: 05/27/17 TIME: 09:17 Assessment/Plan Lines/Catheters IV Catheter Type (from Nrsg): Peripheral IV Matos in Place (from Nrsg): No Assessment/Plan Assessment/Plan Stable, POD #3, s/p right RACHANA -pain meds as needed -ASA/SCDs -OOB with PT -dressing changed -check AM labs -possible d/c home tomorrow Subjective 24 Hr Interval Summary No acute overnight events. Pain improving and well managed with pain medication. VSS. Had low grade fever but otherwise well appearing. Possible d/c home tomorrow. Exam/Review of Systems Vital Signs Vitals Vital Signs Date Time Temp Pulse Resp B/P Pulse Ox O2 Delivery O2 Flow Rate FiO2 05/27/17 07:45 98.0 63 19 106/55 98 05/24/17 15:55 Room Air 05/24/17 12:00 8.0 Intake and Output 05/26/17 05/26/17 05/27/17 14:59 22:59 06:59 Intake Total 50 ml 2870 ml 1750 ml Output Total 1850 ml 2850 ml Balance 50 ml 1020 ml -1100 ml Exam Free Text/Dictation Dressing dry Incision clean, dry, and intact without redness or drainage 5/5 Quadriceps, Tibialis Anterior, EHL, Gastroc, Soleus, Peroneals Normal sensation Palpable DT/PT, CR <2 sec No distal edema Results Result Diagram: 05/27/1744105/27/17441 AMINA CRONIN PA-C May 27, 2017 09:18
[2017-05-27 14:00] VITALS: BP 122/60; RESP 19
--- NOTE | 2017-05-27 14:49 | PN ---
Date/Time of Note Date/Time of Note DATE: 05/27/17 TIME: 14:47 Assessment/Plan VTE Prophylaxis VTE Prophylaxis Intervention: SCD's, other Lines/Catheters IV Catheter Type (from Nrs): [place] Urinary Cath still in place: No Assessment/Plan Assessment/Plan 1. S/p Right total hip replacement, follow up with ortho and PT 2. Anemia, s/p 1 unit PRBC 05/25/2017, iron supplement, stable H/H 3. DVT prophylaxis, ASA 4. Plan to discharge home tomorrow Subjective 24 Hr Interval Summary Free Text/Dictation pain is controlled. tired after PT Exam/Review of Systems Vital Signs Vitals Vital Signs Date Time Temp Pulse Resp B/P Pulse Ox O2 Delivery O2 Flow Rate FiO2 05/27/17 07:45 98.0 63 19 106/55 98 05/24/17 15:55 Room Air 05/24/17 12:00 8.0 Intake and Output 05/26/17 05/26/17 05/27/17 15:00 23:00 07:00 Intake Total 50 ml 2870 ml 1750 ml Output Total 1850 ml 2850 ml Balance 50 ml 1020 ml -1100 ml Exam Constitutional: alert, oriented, well developed Psych: nl mood/affect, no complaints Head: atraumatic, normocephalic Eyes: EOMI, PERRL, nl conjunctiva, nl lids, nl sclera ENMT: nl external ears & nose, nl lips & teeth, nl nasal mucosa & septum Neck: non-tender, supple Respiratory: clear to auscultation, normal air movement, No congested cough, No crackles/rales, No diminished breath sounds, No intercostal retraction, No labored breathing, No other, No respirations, No tactile fremitus, No wheezing Cardiovascular: nl pulses, regular rate and rhythm, No S3, No S4, No bruits, No diastolic murmur, No edema, No gallop, No irregular rhythm, No jugular venous distention (JVD), No murmurs/extra sounds, No other, No rub, No systolic murmur Gastrointestinal: nl liver, spleen, non-tender, soft, No ascites, No bowel sounds, No distended, No firm, No hepatomegaly, No mass , No other, No rebound or guarding, No splenomegaly, No surgical scars, No tender Musculoskeletal: nl extremities to inspection Extremities: other (right hip no bleeding) 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, nl mental status, nl speech, nl strength Skin: nl turgor Lymph: nl lymph nodes Results Result Diagram: 05/27/1744105/27/172 Results 24 hrs Laboratory Tests Test 05/26/17 17:58 05/26/17 21:24 05/27/17 04:42 05/27/17 08:42 Bedside Glucose 110 138 109 Hemoglobin 8.9 L Hematocrit 26.5 L Sodium Level 137 Potassium Level 4.7 Chloride Level 95 L Carbon Dioxide Level 33 H Anion Gap 14 Blood Urea Nitrogen 11 Creatinine 0.77 Glucose Level 104 Calcium Level 8.7 Test 05/27/17 12:32 Bedside Glucose 146 Medications Medications Current Medications Miscellaneous Information 1 ea 1 ea NOTE XX ; Start 05/24/17 at 15:30; Stop at 15:29 Lactated Ringer's (Lr) 1,000 ml @ 125 mls/hr Q8H IV Last administered on 18:27; Admin Dose 125 MLS/HR; Start 05/24/17 at 11:55 Hydromorphone HCl (Dilaudid) 1 mg Q3H PRN IV PAIN LEVEL 8-10 Last administered on 05/27/17 02:20; Admin Dose 1 MG; Start 05/24/17 at 12:00 Ondansetron HCl (Zofran Inj) 4 mg Q6H PRN IV NAUSEA AND/OR VOMITING; Start at 12:00 Bisacodyl (Dulcolax Supp) [address] CONSTIPATION; Start 05/24/17 at 12: 00 Magnesium Hydroxide (Milk Of Mag) 30 ml BID PRN PO CONSTIPATION; Start at 12:00 Sodium Biphosphate/ Sodium Phosphate (Fleet Enema) [address] CONSTIPATION; Start 05/24/17 at 12:00 Docusate Sodium (Colace) 100 mg BID PO Last administered on 05/27/17 08:49; Admin Dose 100 MG; Start 05/24/17 at 21:00 Diphenhydramine HCl (Benadryl) 25 mg Q6H PRN PO PRURITUS; Start 05/24/17 at 12: 00 Acetaminophen/ Hydrocodone Bitart ([place] (7.5-325)) 1 tab Q4H PRN PO PAIN LEVEL 1-3 Last administered on 05/27/17 08:49; Admin Dose 1 TAB; Start at 12:00 Acetaminophen/ Hydrocodone Bitart ([place] (7.5-325)) 2 tab Q4H PRN PO PAIN LEVEL 4-7 Last administered on 05/26/17 04:06; Admin Dose 2 TAB; Start at 12:00 Aspirin (Ecotrin) 325 mg BID PO Last administered on 05/27/17 08:49; Admin Dose 325 MG; Start 05/25/17 at 09:00 Pantoprazole (Protonix Tab) 40 mg BID@,18 PO Last administered on 05/27/17 06:11; Admin Dose 40 MG; Start 05/24/17 at 18:00 Ondansetron HCl (Zofran Inj) 4 mg Q6H PRN IV NAUSEA AND/OR VOMITING; Start at 14:30 Acetaminophen (Tylenol Tab) 650 mg Q6H PRN PO PAIN LEVEL 1-3 OR FEVER Last administered on 05/26/17 20:54; Admin Dose 650 MG; Start 05/24/17 at 14:30 Acetaminophen (Tylenol Supp) [address] PAIN LEVEL 1-3 OR FEVER; Start 05/24/17 at 14:30 Diagnostic Test (Pha) (Accu-Chek) 1 ea 02 XX ; Start 05/25/17 at 02:00 Miscellaneous Information 1 ea NOTE XX ; Start 05/24/17 at 15:00 Glucose (Glutose) 15 gm Q15M PRN PO DECREASED GLUCOSE; Start 05/24/17 at 15:00 Glucose (Glutose) 22.5 gm Q15M PRN PO DECREASED GLUCOSE; Start 05/24/17 at 15: 00 Dextrose (D50w Syringe) 25 ml Q15M PRN IV DECREASED GLUCOSE; Start 05/24/17 at 15:00 Dextrose (D50w Syringe) 50 ml Q15M PRN IV DECREASED GLUCOSE; Start 05/24/17 at 15:00 Glucagon (Glucagen) 1 mg Q15M PRN IM DECREASED GLUCOSE; Start 05/24/17 at 15:00 Glucose (Glutose) 15 gm Q15M PRN BUCCAL DECREASED GLUCOSE; Start 05/24/17 at 15 :00 Ferrous Sulfate (Ferrous Sulfate (Ec)) 325 mg BID PO Last administered on 08:49; Admin Dose 325 MG; Start 05/26/17 at 13:00 YEISON JENKINS MD May 27, 2017 14:48
[2017-05-27 21:28] VITALS: BP 126/67; PULSE 70; RESP 18
[2017-05-28 02:00] VITALS: BP 129/64; PULSE 71; RESP 18
[2017-05-28] MEDS: LACTATED RINGER'S 1,000 ML IV SCH ×3 (03:55→17:30)
[2017-05-28 05:30] LABS: BASOPHILS % 0.3 % (0.0-2.0); EOSINOPHILS # 0.1 10^3/ul (0.0-0.5); EOSINOPHILS % 1.1 % (0.0-7.0); HEMATOCRIT 25.5 % (42.0-52.0); HEMOGLOBIN 8.8 g/dl (14.0-18.0); LYMPHOCYTES % 13.6 % (15.0-51.0); MEAN CORPUSCULAR HEMOGLOBIN 29.4 pg (29.0-33.0); MEAN CORPUSCULAR HGB CONC 34.5 g/dl (32.0-37.0); MEAN CORPUSCULAR VOLUME 85.3 fl (82.0-101.0); MEAN PLATELET VOLUME 9.6 fl (7.4-10.4); MONOCYTE # 0.8 10^3/ul (0.3-0.9); MONOCYTES % 11.1 % (0.0-11.0); NEUTROPHILS % 73.4 % (39.0-77.0); PLATELET COUNT 189 10^3/UL (140-415); RED BLOOD COUNT 2.99 10^6/ul (4.70-6.10); RED CELL DISTRIBUTION WIDTH 14.6 % (11.5-14.5); WHITE BLOOD COUNT 7.4 10^3/ul (4.8-10.8)
[2017-05-28 05:35] LABS: CALCIUM 8.7 mg/dl (8.4-10.2); CREATININE 0.81 mg/dl (0.61-1.24); POTASSIUM 4.5 mmol/L (3.5-5.1)
[2017-05-28] MEDS: PANTOPRAZOLE (EC) 40 MG TAB PO SCH ×2 (06:00→18:25)
--- NOTE | 2017-05-28 07:48 | PN ---
Date/Time of Note Date/Time of Note DATE: 05/28/17 TIME: 07:46 Assessment/Plan VTE Prophylaxis VTE Prophylaxis Intervention: ambulation, SCD's, other (Aspirin 325 mg twice daily) Lines/Catheters IV Catheter Type (from Nrsg): Saline Lock Matos in Place (from Nrsg): No Assessment/Plan Assessment/Plan -Pain Meds as needed -Dress change performed today -ASA for DVT Prophylaxis x 6 weeks outpatient discussed. -Continue monitoring as outpatient on discharge -Follow-up at scheduled postop outpatient appointment or sooner if there is any issue. -Tegaderm dressings given with specific instructions to use as outpatient to keep wound dry until conor are moved around 10 days. -Hip precautions discussed -Patient Stable -Discharge to Home with home health Subjective 24 Hr Interval Summary 62-year-old male postop day 4 status post right total hip arthroplasty via anterior route. Patient continues to progress well in regards to the right hip. Patient is currently on touchdown weightbearing. While performing touchdown weightbearing he has 1/10 pain. No pain at rest. On occasion, he states that he gets anterior quadriceps pain that can reach up to a 6/10 typically after physical therapy that subsides with pain medication. Patient is having off and on headaches that he reports is mild. Denies any focal neurological deficits. Denies any chest pain/tightness, calf pain or shortness of breath. Patient states that he continues to improve. Pain Control: well controlled Exam/Review of Systems Vital Signs Vitals Vital Signs Date Time Temp Pulse Resp B/P Pulse Ox O2 Delivery O2 Flow Rate FiO2 05/28/17 02:00 98.2 71 18 129/64 98 Room Air 05/24/17 12:00 8.0 Intake and Output 05/27/17 05/27/17 05/28/17 15:00 23:00 07:00 Intake Total 1020 ml Output Total 750 ml Balance 270 ml Exam Free Text/Dictation -Incision: Clean, Dry and Intact without any redness or drainage -Thigh soft -5/5 Quadriceps, Tibialis Anterior, EHL Gastrocnemius/Soleus and Peroneals -Normal Sensation -Palpable DP/PT, Capillary Refill <2 secs -No Distal Edema -Negative Rocio Sign/No calf pain -Toes Freely Movable Results Result Diagram: 05/28/17 0430 05/28/17429 ESTEPHANIE WEBSTER PA-C May 28, 2017 07:48
[2017-05-28] MEDS: INSULIN ASPART [NOVOLOG] 3 ML PEN SC SCH ×3 (07:50→17:30)
[2017-05-28 08:00] VITALS: BP 118/69; RESP 18
[2017-05-28] MEDS: FERROUS SULFATE (EC) 325 MG TAB PO SCH (09:28)
[2017-05-28] MEDS: DOCUSATE SODIUM 100 MG CAP PO SCH (09:28)
[2017-05-28] MEDS: HYDROCODONE/APAP (7.5/325) TAB PO PRN ×2 (09:28→18:25)
[2017-05-28] MEDS: ASPIRIN (EC) 325 MG TAB PO SCH (09:28)
[2017-05-28 14:00] VITALS: BP 124/67; RESP 20
--- NOTE | 2017-05-30 10:51 | DS ---
Date/Time of Note Date/Time of Note DATE: 05/30/17 TIME: 10:48 Discharge Summary Admission/Discharge Info Admit Date/Time May 24, 2017 at 05:42 Discharge Date/Time May 28, 2017 at 20:40 Discharge Diagnosis s/p posterior RACHANA, subtrochanteric shortening osteotomy Patient Condition: Good Procedures Right posterior total hip arthroplasty, subtrochanteric shortening femoral osteotomy Hospital Course This is a 62-year-old male, who was seen in the clinic complaining of right hip pain. 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 On 05/24/2017, the patient was admitted and taken to the operating room, where he underwent a right posterior total hip arthroplasty with a subtrochanteric femoral shortening osteotomy. There were no intraoperative complications. The patient tolerated the procedure well. He was taken to recovery room in stable condition.He was started on aspirin and SCDs for DVT prophylaxis. He remained hemodynamically stable although did require a blood transfusion due to post-operative anemia. Additionally he remained neurovascularly intact throughout his hospital stay. He began physical therapy on postoperative day 1 and continue to make good progress. Ultimately was deemed stable for discharge home on postoperative day 4. Prior to discharge, the incision was inspected and noted to be clean, dry, and intact. Dressing changes were done prior to patient going home. Discharge instructions: The patient will be discharged home in stable condition. He is to resume a normal diet. He is weightbearing as tolerated on right lower extremity. He will begin physical therapy with home health. He be discharged home with medication noted and is to resume all his normal home medication. The patient is to call the office or go to emergency room for any concerns including increased redness, swelling, drainage, fever, or any concerns regarding the operation or site of incision. Home Meds Active Scripts Tramadol HCl (Tramadol HCl) 50 Mg Tablet, 50 MG PO Q6 for 30 Days, #60 TAB Prov:AMINA CRONIN PA-C 05/25/17 Pantoprazole* (Pantoprazole*) 40 Mg Tablet.dr, 40 MG PO DAILY for 40 Days, #40 Prov:AMINA CRONIN PA-C 05/25/17 Hydrocodone/Acetaminophen (Hydrocodon-Acetaminoph 7.5-325) 1 Each Tablet, 1 TAB PO Q4H Y for PAIN LEVEL 1-3 for 30 Days, #60 TAB Prov:AMINA CRONIN PA-C 05/25/17 Aspirin (Aspir-Toshia) 325 Mg Tablet.dr, 325 MG PO BID for 40 Days, #80 Prov:AMINA CRONIN PA-C 05/25/17 Discontinued Reported Medications Ibuprofen* (Advil*) 200 Mg Capsule, 200 MG PO Q6H Y for PAIN, CAP 05/24/17 Tramadol HCl (Tramadol HCl) 50 Mg Tablet, 50 MG PO BID, #60 TAB 05/24/17 Follow-up Plan Follow-up in the office in 1 week from discharge Primary Care Provider AMINA Choudhury PA-C May 30, 2017 10:51
== END 2017-05-28 20:40 | disposition home health service (06) | DRG 470 ==
LOC: REC 05:42 → MS1 13:23
PROVIDERS: ADMIT Orthopaedic Surgery; ATTEND Orthopaedic Surgery
PROC: 0SR904Z Replacement of Right Hip Joint with Ceramic on Polyethylene Synthetic Substitute, Open Approach (ICD-10-PCS; principal; 2017-05-25)
PROC: 30233N1 Transfusion of Nonautologous Red Blood Cells into Peripheral Vein, Percutaneous Approach (ICD-10-PCS; 2017-05-25)
DX: M16.11 Unilateral primary osteoarthritis, right hip (principal); E66.9 Obesity, unspecified; Q65.89 Other specified congenital deformities of hip; D64.9 Anemia, unspecified; R73.9 Hyperglycemia, unspecified; Z68.32 Body mass index [BMI] 32.0-32.9, adult; Z71.3 Dietary counseling and surveillance; F41.9 Anxiety disorder, unspecified
CPT/HCPCS: 36430; 72170; 73500; 73530; 80048; 80053; 80061; 81003; 82728; 82962; 83036; 83540; 83735; 84100; 84443; 85014; 85018; 85025; 86644; 86850; 86900; 86901; 86920; 87081; 87086; 88304; 88311; 97110; 97116; 97162; 97166; 97530; C1713; C1776; C9290; J0131; J0171; J0690; J0697; J0735; J1100; J1170; J1644; J1815; J1885; J2175; J2250; J2274; J2370; J2405; J2765; J3010; J3370; J7120; P9016; P9045

== ENCOUNTER → 2017-06-03 | Outpatient (CLI) | payer OTHER ==
[~2017-06-03] MED LIST changes: +ASPI325T32 PO; -BUPIVACAINE LIPOSOME/PF 266 MG/20 ML VIAL INFIL ONE; -CEFAZOLIN 2GM/50 ML (PMX) 50 ML X1 BEFORE INCISION IVPB ONE; -CELECOXIB 400 MG PO X1 DOSE PO ONE; +HYDR-3605 PO; -PAIN COCKTAIL-CEFUROXIME IRR ONE; +PANT40TA4 PO; -PREGABALIN 300 MG PO X1 PO ONE; +TRAM50TA2 PO; -TRANEXAMIC ACID in SOD CHLORIDE 0.9% 100 ML FOR INTRAOP IVPB ONE; -TRANEXAMIC ACID in SOD CHLORIDE 0.9% 100 ML ON CALL TO OR IV ONE; -oxyCODONE (CR) 10 MG TAB [oxyCONTIN] X1 DOSE PO ONE; -traMADOL 50 MG TAB X 1 DOSE PO ONE
--- NOTE | 2017-06-03 12:04 | PN ---
Date/Time of Note Date/Time of Note DATE: 06/03/17 TIME: 11:58 Outpatient Progress Note HPI Pierre presents today for his first postoperative evaluation. He is now 10 days status post right posterior total hip arthroplasty and subtrochanteric femoral shortening osteotomy. He is doing well overall. He is having some moderate pain with that is controlled with pain medication. He has been toe- touch weightbearing on the right lower extremity. He is taking aspirin twice daily for DVT prophylaxis. He is having some soft tissue swelling in the buttock area but denies any calf pain or tenderness. He has been evaluated by physical therapy and plans to begin home health PT next week, he presents today for his first postoperative evaluation. Physical Exam On exam today, he is alert and oriented 4, and in no acute distress. He is ambulating with a front wheel walker and is toe-touch weightbearing. Exam of the incision demonstrates it to be clean, dry, and intact. His leg lengths are essentially equal. He has difficulty performing a straight leg raise at this point. There is no erythema, warmth, pus, or drainage noted. There is some mild soft tissue swelling in the buttock area but no lower extremity right lower extremity swelling. Homans sign is negative. Compartments are soft. He is neurovascularly intact distally. Imaging: x-rays of the right hip are obtained today and reviewed by me. They demonstrate the hip to be in good anatomic alignment. There is no dislocations noted. The osteotomy appears well aligned without any shifting. There are no other acute fractures or dislocations identified. Allergies Coded Allergies: No Known Allergy (Unverified , 01/06/17) Assessment/Plan Assessment: 10 days status post right posterior total hip arthroplasty and subtrochanteric femoral shortening osteotomy Plan: The conor removed today, and Steri-Strips were applied. He is to continue toe-touch weightbearing using a front wheel walker until 6 weeks postoperatively. Additionally he is to continue aspirin 325 mg twice daily for DVT prophylaxis. He will continue with home health physical therapy as well. He is to follow-up at [facility] with Dr. Weiss in 4 weeks. Medications Home Meds Active Scripts Tramadol HCl (Tramadol HCl) 50 Mg Tablet, 50 MG PO Q6 for 30 Days, #60 TAB Prov:AMINA CRONIN PA-C 05/25/17 Pantoprazole* (Pantoprazole*) 40 Mg Tablet., 40 MG PO DAILY for 40 Days, #40 Prov:AMINA CRONIN PA-C 05/25/17 Hydrocodone/Acetaminophen (Hydrocodon-Acetaminoph 7.5-325) 1 Each Tablet, 1 TAB PO Q4H Y for PAIN LEVEL 1-3 for 30 Days, #60 TAB Prov:AMINA CRONIN PA-C 05/25/17 Aspirin (Aspir-Toshia) 325 Mg Tablet., 325 MG PO BID for 40 Days, #80 Prov:AMINA CRONIN PA-C 05/25/17 AMINA CRONIN PA-C Jun 03, 2017 12:04
--- NOTE | 2017-06-03 14:54 | RADRPT ---
PROCEDURE: XR Right hip and pelvis. CLINICAL INDICATION: Right hip pain. Pelvic pain. TECHNIQUE: Two views. Frontal pelvis and frontal right hip. COMPARISON: 05/24/2017. FINDINGS: There are bilateral total hip arthroplasties. These appear satisfactory with no fracture, dislocati on, or loosening. Right lateral skin conor and surgical drain have been removed. Antibiotic bead s are present within the right hip joint region, fewer than seen previously. The soft tissues are otherwise normal. There is no lytic or blastic lesion. The upper pelvis is not completely included on the image. IMPRESSION: 1. Satisfactory postoperative appearance of both hips. 2. No acute abnormality. RPTAT: QQ .Sigifredo Porter MD, MD Date Time Electronically viewed and signed by .Sigifredo Porter MD, on 06/03/2017 14:54 .R/
== END | disposition home or self-care (01) ==
LOC: HKI 11:10
PROVIDERS: ATTEND Orthopaedic Surgery
DX: M25.551 Pain in right hip (principal); Z47.89 Encounter for other orthopedic aftercare; Z96.641 Presence of right artificial hip joint
CPT/HCPCS: 73502